=== PATIENT | female | born 1960 ===

== ENCOUNTER 2020-08-06 11:26 | Outpatient (REF) | payer OTHER, SELFPAY ==
--- NOTE | ~2020-08-06 | MM_ITS ---
EXAMINATION: MM SCREENING DIGITAL BREAST TOMOSYNTHESIS, BILATERAL CLINICAL INFORMATION: Screening. Asymptomatic. The lifetime risk of breast cancer based on the Tyrer-Cuzick Model is 4%. COMPARISON: Mammography: 02/03/2016, 08/19/2014 TECHNIQUE: Digital breast tomosynthesis is performed in both the craniocaudal and mediolateral oblique views along with computer-aided detection (CAD). Synthesized 2D images are generated from the tomosynthesis. FINDINGS: There are scattered areas of fibroglandular density (ACR BI-RADS breast composition Category b). Parenchymal pattern is similar to prior studies and there is no developing density or significant mass or architectural abnormality. There are increased bilateral scattered benign round and vascular calcifications. The axilla and skin contours are unremarkable. MM/MM tomosynthesis screening BI IMPRESSION: No significant changes from prior exams. ASSESSMENT: BI-RADS 2: Benign RECOMMENDATION: Routine annual mammography screening. This patient's information was entered into a reminder system with a target due date for their next mammogram.
== END 2020-08-06 11:27 | disposition home or self-care (01) ==
LOC: HO.MAMMO 11:26
PROVIDERS: PCP Internal Medicine; Visit Provider Internal Medicine
DX: Z12.31 Encounter for screening mammogram for malignant neoplasm of breast (principal)
CPT/HCPCS: 77063; 77067

== ENCOUNTER → 2020-08-27 10:44 | Outpatient (BNVA) | payer OTHER, SELFPAY | PROVIDERS: Visit Provider Advanced Practice Midwife ==

== ENCOUNTER 2020-11-29 08:35 | Outpatient (REF) | payer OTHER, SELFPAY ==
[2020-11-29 09:20] LABS: MANUAL DIFF FLAG NO
[2020-11-29 09:24] LABS: Basophils Percent Auto 0.8 % (0-2); Eosinophils Absolute Auto 0.2 X10*3/uL (0.0-0.4); Eosinophils Percent Auto 4.8 % (0-4); Hematocrit 42.7 % (37-47); Imm Gran Abs Auto 0.02 X10*3/uL (0.00-0.03); Imm Gran Pct Auto 0.4 % (0.0-0.4); Lymphocytes Absolute Auto 1.7 X10*3/uL (1.2-4.9); Lymphocytes Percent Auto 35.7 % (20-40); Mean Corpuscular HGB Conc 32.8 g/dl (31.0-35.0); Mean Corpuscular Hemoglobin 29.5 pg (27.0-33.0); Mean Corpuscular Volume 90.1 fL (80-98); Mean Platelet Volume 10.2 fL (9.4-12.3); Monocytes Absolute Auto 0.5 X10*3/uL (0.1-1.2); Monocytes Percent Auto 9.9 % (2-11); Neutrophils Absolute Auto 2.3 X10*3/uL (2.0-8.3); Neutrophils Percent Auto 48.4 % (45-73); Platelet Count 183 X10*3/uL (160-400); Red Blood Count 4.74 X10*6/uL (4.20-5.50); Red Cell Distribution Width 12.2 % (11.0-16.0); White Blood Count 4.8 X10*3/uL (4.8-10.8)
[2020-11-29 09:53] LABS: Alanine Aminotransferase 18 U/L (0-31); Albumin Level 3.9 g/dL (3.5-5.0); Alkaline Phosphatase 102 U/L (39-117); Anion Gap 10 (12-20); Aspartate Amino Transferase 18 U/L (5-31); Bilirubin Total 0.7 mg/dL (0.0-1.0); Blood Urea Nitrogen 16 mg/dL (9-16); Calcium 9.1 mg/dL (8.4-10.2); Carbon Dioxide 28 mmol/L (22-29); Chloride 108 mmol/L (96-108); Cholesterol 213 mg/dL; Estimated Glomerular Filt Rate > 60; Glucose Fasting 151 mg/dL (60-99); HDL Cholesterol 54 mg/dL; LDL Cholesterol Calculated 139 mg/dl; Potassium 4.9 mmol/L (3.3-5.1); Sodium 141 mmol/L (135-145); Total Protein 6.5 g/dL (6.5-8.0); Triglycerides 102 mg/dL
[2020-11-29 10:04] LABS: Creatinine Urine 101.25 mg/dL; Microalbum/Creatinine Ratio Ur 6.9 ug/mg cr
== END 2020-11-29 08:36 | disposition home or self-care (01) ==
LOC: HO.LAB 08:35
PROVIDERS: PCP Internal Medicine; Visit Provider Internal Medicine
DX: E11.29 Type 2 diabetes mellitus with other diabetic kidney complication (principal); R80.9 Proteinuria, unspecified; E78.5 Hyperlipidemia, unspecified
CPT/HCPCS: 36415; 80053; 80061; 82043; 85025

== ENCOUNTER 2021-09-02 10:11 | Outpatient (REF) | payer OTHER, SELFPAY ==
[2021-09-06 22:02] LABS: HPV mRNA E6/E7 rflx Not Detected (Not Detected)
== END 2021-09-02 10:12 | disposition home or self-care (01) ==
LOC: HO.LAB 10:11
PROVIDERS: Visit Provider Advanced Practice Midwife
DX: Z01.419 Encounter for gynecological examination (general) (routine) without abnormal findings (principal); Z11.51 Encounter for screening for human papillomavirus (HPV)
CPT/HCPCS: 87624; 88142

== ENCOUNTER 2021-09-03 10:10 | Outpatient (REF) | payer OTHER, SELFPAY ==
[2021-09-03 11:42] LABS: Alanine Aminotransferase 33 U/L (0-31); Albumin Level 3.9 g/dL (3.5-5.0); Alkaline Phosphatase 111 U/L (39-117); Anion Gap 11 (12-20); Aspartate Amino Transferase 22 U/L (5-31); Bilirubin Total 0.8 mg/dL (0.0-1.0); Blood Urea Nitrogen 17 mg/dL (9-16); Calcium 9.5 mg/dL (8.4-10.2); Carbon Dioxide 27 mmol/L (22-29); Chloride 104 mmol/L (96-108); Cholesterol 220 mg/dL; Estimated Glomerular Filt Rate > 60; Glucose Fasting 195 mg/dL (60-99); HDL Cholesterol 51 mg/dL; LDL Cholesterol Calculated 150 mg/dl; Potassium 4.4 mmol/L (3.3-5.1); Sodium 138 mmol/L (135-145); Total Protein 6.9 g/dL (6.5-8.0); Triglycerides 95 mg/dL
[2021-09-03 11:42] LABS: Creatinine Urine 97.05 mg/dL; Microalbum/Creatinine Ratio Ur 10.3 ug/mg cr
== END 2021-09-03 10:11 | disposition home or self-care (01) ==
LOC: HO.LAB 10:10
PROVIDERS: PCP Internal Medicine; Visit Provider Internal Medicine
DX: E11.29 Type 2 diabetes mellitus with other diabetic kidney complication (principal); R80.9 Proteinuria, unspecified; E78.5 Hyperlipidemia, unspecified
CPT/HCPCS: 36415; 80053; 80061; 82043

== ENCOUNTER 2021-09-23 12:32 | Outpatient (REF) | payer OTHER, SELFPAY ==
--- NOTE | ~2021-09-23 | MM_ITS ---
EXAMINATION: MM SCREENING DIGITAL BREAST TOMOSYNTHESIS, BILATERAL CLINICAL INFORMATION: Screening. Asymptomatic. The lifetime risk of breast cancer based on the Tyrer-Cuzick Model is 5%. COMPARISON: Mammography: 08/06/2020, 02/03/2016, 08/19/2014 TECHNIQUE: Digital breast tomosynthesis is performed in both the craniocaudal and mediolateral oblique views along with computer-aided detection (CAD). Synthesized 2D images are generated from the tomosynthesis. FINDINGS: There are scattered areas of fibroglandular density (ACR BI-RADS breast composition Category b). There are no significant masses, abnormal calcifications, or other abnormalities. Parenchymal pattern is similar to prior studies. The axilla and skin contours are unremarkable. MM/MM tomosynthesis screening BI IMPRESSION: No mammographic evidence of malignancy. ASSESSMENT: BI-RADS 1: Negative RECOMMENDATION: Routine annual mammography screening. This patient's information was entered into a reminder system with a target due date for their next mammogram.
== END 2021-09-23 12:33 | disposition home or self-care (01) ==
LOC: HO.MAMMO 12:32
PROVIDERS: PCP Internal Medicine; Visit Provider Internal Medicine
DX: Z12.31 Encounter for screening mammogram for malignant neoplasm of breast (principal)
CPT/HCPCS: 77063; 77067

== ENCOUNTER → 2021-11-01 11:37 | Outpatient (BNVA) | payer OTHER, SELFPAY | PROVIDERS: PCP Internal Medicine; Referring Provider Internal Medicine; Visit Provider Nurse Practitioner Family | DX: Z12.11 Encounter for screening for malignant neoplasm of colon (principal) ==

== ENCOUNTER 2022-01-21 08:31 | Outpatient (REF) | payer OTHER, SELFPAY ==
[2022-01-21 09:50] LABS: Alanine Aminotransferase 22 U/L (0-31); Albumin Level 3.8 g/dL (3.5-5.0); Alkaline Phosphatase 125 U/L (39-117); Anion Gap 11 (12-20); Aspartate Amino Transferase 20 U/L (5-31); Bilirubin Total 0.4 mg/dL (0.0-1.0); Blood Urea Nitrogen 9 mg/dL (9-16); Calcium 8.9 mg/dL (8.4-10.2); Carbon Dioxide 27 mmol/L (22-29); Chloride 103 mmol/L (96-108); Cholesterol 217 mg/dL; Estimated Glomerular Filt Rate > 60; Glucose Fasting 180 mg/dL (60-99); HDL Cholesterol 51 mg/dL; LDL Cholesterol Calculated 146 mg/dl; Potassium 4.2 mmol/L (3.3-5.1); Sodium 137 mmol/L (135-145); Total Protein 6.7 g/dL (6.5-8.0); Triglycerides 103 mg/dL
== END 2022-01-21 08:32 | disposition home or self-care (01) ==
LOC: HO.LAB 08:31
PROVIDERS: PCP Internal Medicine; Visit Provider Internal Medicine
DX: E11.29 Type 2 diabetes mellitus with other diabetic kidney complication (principal); R80.9 Proteinuria, unspecified; E78.5 Hyperlipidemia, unspecified
CPT/HCPCS: 36415; 80053; 80061

== ENCOUNTER 2022-03-03 11:50 | Day surgery (SDC) | payer OTHER, SELFPAY ==
[2022-03-01 08:18] VITALS: BMI 30.3
--- NOTE | 2022-03-02 09:51 | HO.ANESPROP2 ---
Documented by User: Rose Meza NP 03/02/22 09:51 HPI - Anesthesia Eval Consult details Narrative: 61yo F for Colonoscopy PMFSH Active Problems Active Problems: All Active Problems (Updated 02/06/22 @ 13:00 by Libia Ford MD) Constipation by delayed colonic transit (Acute) Essential hypertension (Acute) Class 1 obesity with body mass index (BMI) of 30.0 to 30.9 in adult (Acute) Screen for colon cancer (Acute) Dyslipidemia (Acute) 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 (Acute) Past Medical History Medical History (Updated 02/06/22 @ 13:00 by Libia Ford MD) Class 1 obesity with body mass index (BMI) of 30.0 to 30.9 in adult 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 Dyslipidemia Screen for colon cancer Family History Family History Father Diabetes Mother Hypertension Fibromyalgia Maternal Grandmother No problems noted. Maternal Grandfather No problems noted. Paternal Grandmother Diabetes Paternal Grandfather Diabetes Son No problems noted. Son No problems noted. Daughter No problems noted. Daughter No problems noted. Daughter No problems noted. Surgical History Surgical History History of cholecystectomy History of hemicolectomy History of tubal ligation Social History Social History Housing: Apartment Alcohol intake: current Alcohol intake frequency: does not drink Patient Tobacco Use Status: Former Tobacco user Tobacco use type: Cigarette e-Cigarette/Vaping Use: Former Use Second Hand Smoke Exposure: No Are you DNR?: No Advance Directives: No Advance Directives Information Provided: Yes Recently lost weight without trying: No Nutrition Risks: No Nutritional Risk Patient : No service: No Current occupational status: unemployed and disabled Cognitive needs: No Hearing needs: No Meds Allergies Allergy/AdvReac Type Severity Reaction Status Date / Time No Known Allergies Allergy Unknown Verified 03/03/22 12:09 [No Known Allergies*] Home Medications Medication Instructions Recorded Confirmed Last Taken Type Glucophage XR 03/03/22 Unknown History Exam Exam Date and Time: March 02, 2022 0951 Height,Weight and Vital Signs: Height 5 ft 2 in Weight 75.296 kg Pertinent Lab Results Pertinent Lab Results: Laboratory Tests 11/29/20 01/21/22 08:55 08:41 WBC 4.8 Hgb 14.0 Hct 42.7 Plt Count 183 Sodium 137 Potassium 4.2 Chloride 103 Carbon Dioxide 27 BUN 9 Creatinine 0.69 Assessment and Plan Assessment Anesthesia Assessment: Chart Reviewed Documented by User: Aydee Freedman MD 03/03/22 12:28 [facility] Past Medical History Medical History (Updated 02/06/22 @ 13:00 by Libia Ford MD) Class 1 obesity with body mass index (BMI) of 30.0 to 30.9 in adult 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 Dyslipidemia Screen for colon cancer Family History Family History Father Diabetes Mother Hypertension Fibromyalgia Maternal Grandmother No problems noted. Maternal Grandfather No problems noted. Paternal Grandmother Diabetes Paternal Grandfather Diabetes Son No problems noted. Son No problems noted. Daughter No problems noted. Daughter No problems noted. Daughter No problems noted. Family history of problems with anesthesia: No Surgical History Surgical History History of cholecystectomy History of hemicolectomy History of tubal ligation History of Problems with Anesthesia: No Social History Social History Housing: Apartment Alcohol intake: current Alcohol intake frequency: does not drink Patient Tobacco Use Status: Former Tobacco user Tobacco use type: Cigarette e-Cigarette/Vaping Use: Former Use Second Hand Smoke Exposure: No Are you DNR?: No Advance Directives: No Advance Directives Information Provided: Yes Recently lost weight without trying: No Nutrition Risks: No Nutritional Risk Patient : No service: No Current occupational status: unemployed and disabled Cognitive needs: No Hearing needs: No Meds Allergies Allergy/AdvReac Type Severity Reaction Status Date / Time No Known Allergies Allergy Unknown Verified 03/03/22 12:09 [No Known Allergies*] Home Medications Medication Instructions Recorded Confirmed Last Taken Type Glucophage XR 03/03/22 Unknown History Exam Airway Mallampati Class: II TM Dist: >3cm Neck ROM: Full Heart: rrr Lungs: cta Assessment and Plan Assessment Anesthesia Assessment: Anesthesia Plan Discussed Final Anesthetic Review Family History of Problems with Anesthesia: No History of Problems with Anesthesia: No NPO: Yes ASA Class: II Final Preanesthetic Review: No Changes in Pt Med Stat, Meds/Allgs Chart Reviewed and Consent Obtained/Reviewed Patient Risk: Intermediate Procedure Risk: Intermediate Anesthetic Plan Anesthetic Plan: MAC: Disposition: Standard PACU
[2022-03-03 11:59] VITALS: BP 159/66; PULSE 112; RESP 19; TEMP 36.3; O2SAT 96
[2022-03-03 12:00] LABS: Glucose, Whole Blood 173 mg/dL (60-115)
[2022-03-03] MEDS: Lactated Ringers 1,000 ML 100 ML IVCONT (12:18)
--- NOTE | 2022-03-03 13:11 | MHC.SHP ---
Pre-Procedural Eval Section A Date of Service: 03/03/22 The patient is an INPATIENT: No The History & Physical has been completed within 30 days and I have reviewed it.: No Section B Chief Complaint: screening Details of Present Illness: Colon cancer screening, history of colon polyps Relevant Family History (Specify if Yes): No Relevant Social History: Tobacco Use (Former smoker) Present Medications: see Short Stay Collaborative assessment Medical History: Significant History (Class 1 obesity with body mass index (BMI) of 30.0 to 30.9 in adult 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 Dyslipidemia Screen for colon cancer) History of Previous Operations: Relevant previous surgery/procedure and date(s) (History of cholecystectomy History of hemicolectomy History of tubal ligation) Allergies: Allergies Allergy/AdvReac Type Severity Reaction Status Date / Time No Known Allergies Allergy Unknown Verified 03/03/22 12:09 [No Known Allergies*] Review of Systems Sugical H&P ROS: Negative: Constitution, Cardiovascular, Respiratory and Gastrointestinal Exam Surgical H&P Exam: Normal: Heart, Normal: Lungs, Normal: Extremities and Normal: Abdomen Plan Diagnosis/Plan: Unchanged I have reviewed the history and physical and performed a pertinent physical examination on my patient. No changes have occurred unless specified.
[2022-03-03 13:52] VITALS: BP 132/102; PULSE 77; RESP 16; TEMP 36.2; O2SAT 97
--- NOTE | 2022-03-03 13:52 | PM.OP ---
Brief Operative Note Date of Service: 03/03/22 Pre-op diagnosis: Colon cancer screen, history of colon polyps Post-op diagnosis: other (Colon polyps, diverticulosis, hemorrhoids) Procedure: COLONOSCOPY TILL CECUM WITH BIOPSIES Consent: Indications for the procedure and potential complications of bleeding, perforation, reaction to medications and missed diagnosis were discussed with the patient and informed consent was obtained. Instrument: Olympus PCF H 190 L variable stiffness pediatric colonoscope Monitoring: Vital signs and clinical assessment, intermittent blood pressure monitoring, continuous EKG monitoring, Pulse oximetry and Carbon Dioxide monitoring were done throughout the procedure. Colon withdrawl time was 18 minutes. Procedure: The patient was placed in the left lateral decubitis position and pre-procedure medications were administered. After a digital rectal examination of the ano-rectum, the video colonoscope was inserted into the rectum and advanced through the colon to the cecum. The colonoscope was slowly withdrawn in a retrograde panoramic fashion and the colon mucosa was carefully examined including a retroflexed view of the rectum. Findings and interventions are described below. Procedure Difficulty: Without difficulty Findings: Terminal Ileum: Not evaluated Cecum: Normal Ascending Colon: a 3-4 mm sessile polyp removed with a cold bx Scattered moderate diverticulosis throughout the colon Transverse Colon: Scattered moderate diverticulosis throughout the colon Descending Colon: Two 4-5 mm polyps versus folds in a diverticulum - biopsied. Scattered moderate diverticulosis throughout the colon Sigmoid Colon: Moderate diverticulosis Rectum: Normal Ano-rectum: Moderate internal hemorrhoids Colon preparation: Good Impression and Post Procedure Diagnosis: Colonoscopy Findings: Three small polyps removed Moderate diverticulosis seen in the entire colon Moderate hemorrhoids on retroflexed exam. Plan: Await pathology results Patient has an appointment on 03/31/22 in the GI Clinic with Ysabel Lieberman FNP-BC. Repeat Colonoscopy interval based on path results - in 3-5 years if polyps are adenomatous and 10 years if polyps are hyperplastic. Above findings were reviewed with the patient and colon polyps and diverticulosis handouts were given in the discharge area Surgeon: Nunu Gonzales MD Anesthesia: MAC (Dr Mejia) Was an Video Presentation Operator used for this Procedure?: Yes Video Presentation Operator: Juan Daniel Rodrigez Estimated blood loss (mL): 0 Pathology: other (A- ASCENDING COLON POLYP B- SIGMOID COLON POLYPS) Condition: stable Disposition: PACU
[2022-03-03 14:07] VITALS: BP 131/79; PULSE 87; RESP 16; TEMP 36.2; O2SAT 97
--- NOTE | 2022-03-05 15:29 | W.PM.OPN ---
Operative Note Operative Note Date of Service: 03/03/22 Narrative: Pre-op diagnosis: Colon cancer screen, history of colon polyps Post-op diagnosis:?other (Colon polyps, diverticulosis, hemorrhoids) Procedure: COLONOSCOPY TILL CECUM WITH BIOPSIES Consent: Indications for the procedure and potential complications of bleeding, perforation, reaction to medications and missed diagnosis were discussed with the patient and informed consent was obtained. Instrument: Olympus PCF H 190 L variable stiffness pediatric colonoscope Monitoring: Vital signs and clinical assessment, intermittent blood pressure monitoring, continuous EKG monitoring, Pulse oximetry and Carbon Dioxide monitoring were done throughout the procedure. Colon withdrawl time was 18 minutes. Procedure: The patient was placed in the left lateral decubitis position and pre-procedure medications were administered. After a digital rectal examination of the ano-rectum, the video colonoscope was inserted into the rectum and advanced through the colon to the cecum. The colonoscope was slowly withdrawn in a retrograde panoramic fashion and the colon mucosa was carefully examined including a retroflexed view of the rectum. Findings and interventions are described below. Procedure Difficulty: Without difficulty Findings: Terminal Ileum: Not evaluated Cecum:? Normal Ascending Colon:? a 3-4 mm sessile polyp removed with a cold bx Scattered moderate diverticulosis throughout the colon Transverse Colon:? Scattered moderate diverticulosis throughout the colon Descending Colon:? Two 4-5 mm polyps versus folds in a diverticulum - biopsied. Scattered moderate diverticulosis throughout the colon Sigmoid Colon:? Moderate diverticulosis Rectum:? Normal Ano-rectum:? Moderate internal hemorrhoids Colon preparation:? Good? Impression and Post Procedure Diagnosis: Colonoscopy Findings: Three small polyps removed Moderate diverticulosis seen in the entire colon Moderate hemorrhoids on retroflexed exam. Plan: Await pathology results Patient has an appointment on 03/31/22 in the GI Clinic with Ysabel Lieberman FNP-BC. Repeat Colonoscopy interval based on path results - in 3-5 years if polyps are adenomatous and 10 years if polyps are hyperplastic. Above findings were reviewed with the patient and colon polyps and diverticulosis handouts were given in the discharge area Surgeon: Nunu Gonzales MD Anesthesia:?MAC (Dr Mejia) Was an National Account Executive used for this Procedure?:?Yes National Account Executive:?Juan Daniel Rodrigez Estimated blood loss (mL):?0 Pathology:?other (A- ASCENDING COLON POLYP? B- SIGMOID COLON POLYPS) Condition:?stable Disposition:?PACU
== END 2022-03-03 14:45 | disposition home or self-care (01) ==
PROVIDERS: PCP Internal Medicine; Visit Provider Internal Medicine Gastroenterology
PROC: 0DJD8ZZ Inspection of Lower Intestinal Tract, Via Natural or Artificial Opening Endoscopic (ICD-10-PCS; CPT 45378; principal; 2022-03-03 12:30)
DX: Z12.11 Encounter for screening for malignant neoplasm of colon (principal); Z86.010 Personal history of colon polyps; D12.2 Benign neoplasm of ascending colon; K63.5 Polyp of colon; K57.30 Diverticulosis of large intestine without perforation or abscess without bleeding; K64.8 Other hemorrhoids; K59.01 Slow transit constipation; E66.8 Other obesity; Z68.30 Body mass index [BMI] 30.0-30.9, adult; E78.5 Hyperlipidemia, unspecified; E11.9 Type 2 diabetes mellitus without complications; Z90.49 Acquired absence of other specified parts of digestive tract; Z87.891 Personal history of nicotine dependence
CPT/HCPCS: 45380; 82947; 88305

== ENCOUNTER 2022-10-17 06:40 | Emergency (ER) | payer OTHER, SELFPAY ==
[2022-10-17 06:42] VITALS: BP 153/103; PULSE 91; RESP 18; TEMP 36; O2SAT 94; BMI 27.9
--- NOTE | 2022-10-17 06:59 | ED_ITS ---
HPI - General Adult General Chief complaint: Skin/Abscess/Foreign Body Stated complaint: ?Diverticulitis Time Seen by Provider: 10/17/22 06:59 Source: patient Mode of arrival: ambulatory Limitations: no limitations History of Present Illness HPI narrative: 2 weeks ago she had pain, she took tylenol for 2 weeks, the pain went away but now she has a rash on the abdomen. Not itchy. She has the rash before but kaci stearns told what it is. The rash started 1.5 weeks ago, she comes in now because the rash has not gone away. Onset (ago): week(s) Location: abdomen Severity: mild Related Data Home Medications Medication Instructions Recorded Confirmed Glucophage XR 03/03/22 Previous Rx's Medication Instructions Recorded metformin 500 mg tablet 500 mg PO BID 90 days #180 tabs 02/06/22 polyethylene glycol 3350 17 17 g PO DAILY #510 grams 03/31/22 gram/dose oral powder (Miralax) Allergies Allergy/AdvReac Type Severity Reaction Status Date / Time No Known Allergies Allergy Unknown Verified 03/31/22 09:37 [No Known Allergies*] Review of Systems 2 Review of Systems: Yes all other systems are reviewed and are negative Gastrointestinal: Gastrointestinal: Reports abdominal pain PMFSH Past Medical History Medical History Class 1 obesity with body mass index (BMI) of 30.0 to 30.9 in adult 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 Diverticulosis Dyslipidemia Screen for colon cancer Tubular adenoma Surgical History History of cholecystectomy History of hemicolectomy History of tubal ligation Hx of colonoscopy Family History Family History Father Diabetes Mother Hypertension Fibromyalgia Maternal Grandmother No problems noted. Maternal Grandfather No problems noted. Paternal Grandmother Diabetes Paternal Grandfather Diabetes Son No problems noted. Son No problems noted. Daughter No problems noted. Daughter No problems noted. Daughter No problems noted. Social History Social History Housing: Apartment Alcohol intake: never Patient Tobacco Use Status: Former Tobacco user Tobacco use type: Cigarette e-Cigarette/Vaping Use: Former Use Second Hand Smoke Exposure: No service: No Current occupational status: unemployed and disabled Cognitive needs: No Hearing needs: No Physical Exam ED Vital Signs: Vital Signs - 24 hr 10/17/22 06:42 Temperature 96.8 F Pulse Rate 91 Respiratory Rate 18 Blood Pressure 153/103 H Pulse Oximetry 94 Oxygen Delivery Method Room Air BMI result Body Mass Index 27.9 Const General: healthy appearing Nutritional Appearance: average body habitus Orientation/consciousness: oriented to person and patient oriented x3 Limitations: no limitations HENMT Head: Yes normal to inspection Ears: external ears normal General nose exam: Normal external nose present Mouth: Normal oral and palatal mucosa present and oropharynx normal Throat: Yes posterior oropharynx normal Eyes General: appearance normal, both eyes and all related structures Neck Neck: Yes normal visual inspection Chest Chest palpation & inspection: normal inspection of the chest Resp Auscultation: clear to auscultation bilaterally Cardio Jugular venous distension: no JVD Rate: regular rate Rhythm: regular rhythm Heart sounds: S1 normal heart sound present and S2 normal heart sound present GI Inspection: Yes normal to inspection Palpation (GI): Soft to palpation, nontender and No hepatosplenomegaly present Auscultation: normal bowel sounds General: Yes no CVA tenderness Back/Spine/Pelvis Back: no CVA tenderness Skin Other: purpura down legs and low abdomen Neuro General: oriented to person and patient oriented x3 Cranial nerves: Yes CN's II-XII intact bilaterally Motor exam (neuro): 5/5 motor strength present throughout Extrem General: Yes normal to inspection Psych Appearance: grossly normal Course Reevaluation(s) Reevaluation #1: Patient with purpura that looks like Henoch Schlein. no fever no evidence of other bleeding. Will dc home with follow up Time: 11:53 Medical Decision Making Differential Diagnosis Differential Diagnoses: The differential diagnosis associated with the presentation includes (bleeding disorder, Henoch Schlein purpura, thrombocytopenia) Admission/Observation Consideration of admission/observation: Escalation of care including admission/observation considered (in this patient who presents with purpura, admission was considered) Lab Data MDM Lab Attestation statement: I reviewed the patient's lab results. 10/17/22 07:18 10/17/22 07:18 Labs: Lab Results 10/17/22 10/17/22 10/17/22 Range/Units 07:18 07:18 07:18 WBC (4.8-10.8) X10*3/uL RBC (4.20-5.50) X10*6/uL Hgb (12.0-16.0) g/dl Hct (37.0-47.0) % MCV (80.0-98.0) fL MCH (27.0-33.0) pg MCHC (31.0-35.0) g/dl RDW (11.0-16.0) % Plt Count (160-400) X10*3/uL MPV (9.4-12.3) fL Immature Gran % (Auto) (0.0-0.4) % Neut % (Auto) (45-73) % Lymph % (Auto) (20-40) % Wagoner % (Auto) (2-11) % Eos % (Auto) (0-4) % Baso % (Auto) (0-2) % Lymph # (Auto) (1.2-4.9) X10*3/uL Wagoner # (Auto) (0.1-1.2) X10*3/uL Eos # (Auto) (0.0-0.4) X10*3/uL Baso # (Auto) (0.0-0.2) X10*3/uL Abs Immat Gran (auto) (0.00-0.03) X10*3/uL Absolute Neuts (auto) (2.0-8.3) x10*3/uL Absolute Nucleated RBC (0.0-0.012) X10*3/uL Nucleated RBC % (auto) (0.0-0.2) /100WBC ESR 7 (0-20) MM/HR APTT 29.3 (26.0-36.4) SEC Sodium 142 (135-145) mmol/L Potassium 4.0 (3.3-5.1) mmol/L Chloride 107 (96-108) mmol/L Carbon Dioxide 28 (22-29) mmol/L Anion Gap 11 L (12-20) BUN 10 (9-16) mg/dL Creatinine 0.72 (0.5-1.4) mg/dL Estim Creat Clear Calc 86.3 Estimated GFR > 60 Random Glucose 180 H (60-115) mg/dL Calcium 9.1 (8.4-10.2) mg/dL Total Bilirubin 0.7 (0.0-1.0) mg/dL AST 21 (5-31) U/L ALT 25 (0-31) U/L Alkaline Phosphatase 122 H (39-117) U/L Total Protein 6.4 L (6.5-8.0) g/dL Albumin 3.7 (3.5-5.0) g/dL 10/17/22 Range/Units 07:18 WBC 4.2 L (4.8-10.8) X10*3/uL RBC 4.52 (4.20-5.50) X10*6/uL Hgb 13.4 (12.0-16.0) g/dl Hct 40.1 (37.0-47.0) % MCV 88.7 (80.0-98.0) fL MCH 29.6 (27.0-33.0) pg MCHC 33.4 (31.0-35.0) g/dl RDW 11.9 (11.0-16.0) % Plt Count 183 (160-400) X10*3/uL MPV 9.6 (9.4-12.3) fL Immature Gran % (Auto) 0.5 H (0.0-0.4) % Neut % (Auto) 52.6 (45-73) % Lymph % (Auto) 31.4 (20-40) % Wagoner % (Auto) 9.3 (2-11) % Eos % (Auto) 5.5 H (0-4) % Baso % (Auto) 0.7 (0-2) % Lymph # (Auto) 1.3 (1.2-4.9) X10*3/uL Wagoner # (Auto) 0.4 (0.1-1.2) X10*3/uL Eos # (Auto) 0.2 (0.0-0.4) X10*3/uL Baso # (Auto) 0.0 (0.0-0.2) X10*3/uL Abs Immat Gran (auto) 0.02 (0.00-0.03) X10*3/uL Absolute Neuts (auto) 2.2 (2.0-8.3) x10*3/uL Absolute Nucleated RBC 0.000 (0.0-0.012) X10*3/uL Nucleated RBC % (auto) 0.0 (0.0-0.2) /100WBC ESR (0-20) MM/HR APTT (26.0-36.4) SEC Sodium (135-145) mmol/L Potassium (3.3-5.1) mmol/L Chloride (96-108) mmol/L Carbon Dioxide (22-29) mmol/L Anion Gap (12-20) BUN (9-16) mg/dL Creatinine (0.5-1.4) mg/dL Estim Creat Clear Calc Estimated GFR Random Glucose (60-115) mg/dL Calcium (8.4-10.2) mg/dL Total Bilirubin (0.0-1.0) mg/dL AST (5-31) U/L ALT (0-31) U/L Alkaline Phosphatase (39-117) U/L Total Protein (6.5-8.0) g/dL Albumin (3.5-5.0) g/dL Discharge Plan Discharge Clinical Impression: Henoch-Schonlein purpura Patient Disposition: Home, Self-Care Instructions: Henoch-Schonlein Purpura (ED), Purpura (ED) Prescriptions: No Action Glucophage XR metformin 500 mg tablet 500 mg PO BID 90 Days Qty: 180 3RF polyethylene glycol 3350 [Miralax] 17 gram/dose powder 17 g PO DAILY Qty: 510 2RF Referrals: Libia Jordan MD [Primary Care Provider] - 5 days
[2022-10-17 07:23] LABS: MANUAL DIFF FLAG NO
[2022-10-17 07:25] LABS: Basophils Percent Auto 0.7 % (0-2); Eosinophils Absolute Auto 0.2 X10*3/uL (0.0-0.4); Eosinophils Percent Auto 5.5 % (0-4); Hematocrit 40.1 % (37.0-47.0); Hemoglobin 13.4 g/dl (12.0-16.0); Imm Gran Abs Auto 0.02 X10*3/uL (0.00-0.03); Imm Gran Pct Auto 0.5 % (0.0-0.4); Lymphocytes Absolute Auto 1.3 X10*3/uL (1.2-4.9); Lymphocytes Percent Auto 31.4 % (20-40); Mean Corpuscular HGB Conc 33.4 g/dl (31.0-35.0); Mean Corpuscular Hemoglobin 29.6 pg (27.0-33.0); Mean Corpuscular Volume 88.7 fL (80.0-98.0); Mean Platelet Volume 9.6 fL (9.4-12.3); Monocytes Absolute Auto 0.4 X10*3/uL (0.1-1.2); Monocytes Percent Auto 9.3 % (2-11); Neutrophils Absolute Auto 2.2 x10*3/uL (2.0-8.3); Neutrophils Percent Auto 52.6 % (45-73); Platelet Count 183 X10*3/uL (160-400); Red Blood Count 4.52 X10*6/uL (4.20-5.50); Red Cell Distribution Width 11.9 % (11.0-16.0); White Blood Count 4.2 X10*3/uL (4.8-10.8)
[2022-10-17 07:33] LABS: Partial Thromboplastin Time 29.3 SEC (26.0-36.4)
[2022-10-17 08:09] LABS: Erythrocyte Sedimentation Rate 7 MM/HR (0-20)
[2022-10-17 11:46] LABS: Alanine Aminotransferase 25 U/L (0-31); Albumin Level 3.7 g/dL (3.5-5.0); Alkaline Phosphatase 122 U/L (39-117); Anion Gap 11 (12-20); Aspartate Amino Transferase 21 U/L (5-31); Bilirubin Total 0.7 mg/dL (0.0-1.0); Blood Urea Nitrogen 10 mg/dL (9-16); Calcium 9.1 mg/dL (8.4-10.2); Carbon Dioxide 28 mmol/L (22-29); Chloride 107 mmol/L (96-108); Creatinine Clr Calc Pharmacy 86.3; Estimated Glomerular Filt Rate > 60; Glucose Random 180 mg/dL (60-115); Sodium 142 mmol/L (135-145); Total Protein 6.4 g/dL (6.5-8.0)
[2022-10-17 11:57] VITALS: BP 164/80; PULSE 96; RESP 16; O2SAT 96
[2022-10-19 15:28] LABS: CRP High Sensitivity 2.7 mg/L
== END 2022-10-17 12:10 | disposition home or self-care (01) ==
PROVIDERS: Emergency Provider Emergency Medicine; PCP Internal Medicine
DX: D69.0 Allergic purpura (principal); E11.9 Type 2 diabetes mellitus without complications; E78.5 Hyperlipidemia, unspecified; Z87.891 Personal history of nicotine dependence; Z79.84 Long term (current) use of oral hypoglycemic drugs; Z79.899 Other long term (current) drug therapy
CPT/HCPCS: 36415; 80053; 85025; 85652; 85730; 86141; 99283; 99284

== ENCOUNTER 2022-11-07 07:46 | Outpatient (REF) | payer OTHER, SELFPAY ==
[2022-11-07 09:23] LABS: Alanine Aminotransferase 34 U/L (0-31); Albumin Level 3.9 g/dL (3.5-5.0); Alkaline Phosphatase 94 U/L (39-117); Anion Gap 11 (12-20); Aspartate Amino Transferase 31 U/L (5-31); Bilirubin Total 1.2 mg/dL (0.0-1.0); Blood Urea Nitrogen 12 mg/dL (9-16); Calcium 9.7 mg/dL (8.4-10.2); Carbon Dioxide 28 mmol/L (22-29); Chloride 107 mmol/L (96-108); Cholesterol 218 mg/dL; Estimated Glomerular Filt Rate > 60; Glucose Fasting 153 mg/dL (60-99); HDL Cholesterol 48 mg/dL; LDL Cholesterol Calculated 146 mg/dl; Potassium 4.8 mmol/L (3.3-5.1); Sodium 141 mmol/L (135-145); Total Protein 6.8 g/dL (6.5-8.0); Triglycerides 122 mg/dL
[2022-11-07 09:40] LABS: Creatinine Urine 214.92 mg/dL; Microalbum/Creatinine Ratio Ur 31.6 ug/mg cr
== END 2022-11-07 07:47 | disposition home or self-care (01) ==
LOC: HO.LAB 07:46
PROVIDERS: PCP Internal Medicine; Visit Provider Internal Medicine
DX: E78.5 Hyperlipidemia, unspecified (principal); E11.29 Type 2 diabetes mellitus with other diabetic kidney complication; E11.9 Type 2 diabetes mellitus without complications; R80.9 Proteinuria, unspecified
CPT/HCPCS: 36415; 80053; 80061; 82043

== ENCOUNTER 2022-12-04 08:21 | Outpatient (REF) | payer OTHER, SELFPAY ==
--- NOTE | ~2022-12-04 | XR_ITS ---
EXAMINATION: XR THORACOLUMBAR SPINE CLINICAL INFORMATION: Scoliosis COMPARISON: 07/17/2019 TECHNIQUE: 4 views of the thoracic spine FINDINGS: Bones are diffusely demineralized. Moderate multilevel spondylosis in the mid to lower thoracic spine with prominent anterior osteophytes. No thoracic vertebral body compression fractures identified. Degenerative changes on limited views of the upper lumbar spine. XR/XR thoracic spine 2V IMPRESSION: Multilevel thoracic spondylosis.
== END 2022-12-04 08:22 | disposition home or self-care (01) ==
LOC: HO.XRAY 08:21
PROVIDERS: PCP Internal Medicine; Visit Provider Internal Medicine
DX: M41.9 Scoliosis, unspecified (principal)
CPT/HCPCS: 72070

== ENCOUNTER 2022-12-11 10:15 | Outpatient (REF) | payer OTHER, SELFPAY ==
--- NOTE | ~2022-12-11 | MM_ITS ---
EXAMINATION: MM SCREENING DIGITAL BREAST TOMOSYNTHESIS, BILATERAL CLINICAL INFORMATION: Screening. Asymptomatic. The lifetime risk of breast cancer based on the Tyrer-Cuzick Model is 4.1%. COMPARISON: Mammography: This study is compared with the prior exams dating back to 2016. TECHNIQUE: Digital breast tomosynthesis is performed in both the craniocaudal and mediolateral oblique views along with computer-aided detection (CAD). Synthesized 2D images are generated from the tomosynthesis. FINDINGS: The breasts are heterogeneously dense, which may obscure small masses (ACR BI-RADS breast composition Category c). There are no significant masses, abnormal calcifications, or other abnormalities. MM/MM tomosynthesis screening BI IMPRESSION: No mammographic evidence of malignancy. ASSESSMENT: BI-RADS BI-RADS 1 - Negative RECOMMENDATION: Routine annual mammography screening. 1 year F/U This patient's information was entered into a reminder system with a target due date for their next mammogram.
== END 2022-12-11 10:16 | disposition home or self-care (01) ==
LOC: HO.MAMMO 10:15
PROVIDERS: PCP Internal Medicine; Visit Provider Internal Medicine
DX: Z12.31 Encounter for screening mammogram for malignant neoplasm of breast (principal)
CPT/HCPCS: 77063; 77067

== ENCOUNTER → 2022-12-11 11:15 | Outpatient (BNV) | payer OTHER, SELFPAY | PROVIDERS: PCP Internal Medicine; Visit Provider Radiology Diagnostic Radiology | DX: Z12.31 Encounter for screening mammogram for malignant neoplasm of breast (principal) | CPT/HCPCS: 77063; 77067 ==

== ENCOUNTER 2022-12-21 09:18 | Outpatient (AMB) | payer OTHER, SELFPAY ==
--- NOTE | 2022-12-21 09:20 | MHC.OFFVIS ---
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 Scribed for WENCESLAO Osborn by Megan Duval, medical accounts receivable specialist, on 12/21/2022 at 9:32am EST. Garment Manufacturing Supervisor Required: Yes Garment Manufacturing Supervisor Language: Cooler Man Name: Kerline Information Interpreted: non-clinical & clinical Education Administrative Assistant: Education Administrative Assistant Present (Kerline) Allergies No Known Allergies [No Known Allergies*] Allergy (Unknown, Verified 12/21/22 09:24) HPI HPI Comments History of Present Illness Details She is a postmenopausal woman presenting for annual exam. Doing well with no obgyn hospitalist physician concerns. Patient admits she tries to eat a healthy diet including a multvitamin. She stays active with exercise. Currently not sexually active. Denies vaginal itching and irritation. Admits to vaginal dryness. Denies family hx of breast, colon and ovarian cancer. Last pap smear 09/02/21 Last mammogram 12/11/22 UTD on colonoscopy. [facility] Medical History (Updated 12/21/22 @ 09:38 by Megan Duval) Class 1 obesity with body mass index (BMI) of 30.0 to 30.9 in adult 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 Diverticulosis Dyslipidemia Menopausal vaginal dryness Screen for colon cancer Tubular adenoma Surgical History History of cholecystectomy History of hemicolectomy History of tubal ligation Hx of colonoscopy Family History Father Diabetes Mother Hypertension Fibromyalgia Maternal Grandmother No problems noted. Maternal Grandfather No problems noted. Paternal Grandmother Diabetes Paternal Grandfather Diabetes Son No problems noted. Son No problems noted. Daughter No problems noted. Daughter No problems noted. Daughter No problems noted. Social History Housing: Apartment Alcohol intake: never Patient Tobacco Use Status: Former Tobacco user Tobacco use type: Cigarette e-Cigarette/Vaping Use: Former Use Second Hand Smoke Exposure: No service: No Current occupational status: unemployed and disabled Cognitive needs: No Hearing needs: No Female Reproductive History Menstrual Age of Menarche: 11 control method: permanent sterilization Permanent Sterilization: BTL Total pregnancies: 8 Full term: 5 Number of Living Children: 5 Date of last pap smear: 09/02/21 (neg pap and hpv) Date of Mammogram: 12/11/22 Physical Exam Vital Signs: Last Vital Signs BP 142/88 H 12/21/22 09:22 BMI result Body Mass Index 30.4 Const General: cooperative, healthy appearing, no acute distress, well developed and alert Orientation/consciousness: patient oriented x3 HEENT Head: Yes normal to inspection Eyes General: appearance normal, both eyes and all related structures Neck Neck: Yes normal visual inspection Thyroid: Thyroid normal Chest Chest palpation & inspection: normal inspection of the chest Breast/axilla inspection: normal inspection of the breasts (no puckering, dimpling, peau de orange, retraction, discharge, masses) Breast/axilla palpation: normal palpation of the breasts Resp Effort & Inspection: normal respiratory effort GI Inspection: Yes normal to inspection Palpation (GI): Soft to palpation (to palpation) Rectal Exam - Female: deferred General: Yes bladder normal to inspection External Female Exam: normal external appearance and normal appearance of the urethra Speculum Exam - Vagina: normal appearance of the vagina, normal palpation and vagina atrophic Speculum Exam - Cervix: normal appearance of the cervix and normal palpation Bimanual exam- vagina & uterus: normal palpation and normal palpation Bimanual Exam- Adnexa, other: normal adnexae and no masses Skin General skin exam: no rashes or lesions noted Neuro General: patient oriented x3 Cognition (Neuro): normal cognition Extrem General: Yes normal to inspection Psych Attitude: cooperative Thought process: Normal thought process present Thought content: Normal thought content present Assessment & Plan Assessment & Plan (1) Encounter for well woman exam: Code(s): Z01.419 - Encounter for gynecological examination (general) (routine) without abnormal findings Plan: Discussed: Current recommendations for pap smears per ASCCP guidelines. Breast awareness and periodic self breast exams. Encouraged yearly mammograms. Maintaining a healthy lifestyle including a well balanced diet including Calcium and Vitamin D and routine exercise. Recommend Replens or vagina lubricants for vaginal dryness if becomes sexually active. Contact office with any PMB. All of her questions and concerns were addressed to the best of my ability RTO in 1 year for AG. (2) Menopausal vaginal dryness: Code(s): N95.1 - Menopausal and female climacteric states Coding Level of Care Code Est Pt Prev Care 40-64y(59185) Diagnoses Encounter for well woman exam Z01.419 Menopausal vaginal dryness N95.1
[2022-12-21 09:22] VITALS: BP 142/88; BMI 30.4
== END 2022-12-21 09:44 | disposition home or self-care (01) ==
LOC: HO.HWS 09:18
PROVIDERS: PCP Internal Medicine; Visit Provider Advanced Practice Midwife
DX: Z01.419 Encounter for gynecological examination (general) (routine) without abnormal findings (principal); N95.1 Menopausal and female climacteric states
CPT/HCPCS: 99396

== ENCOUNTER → 2022-12-21 09:18 | Outpatient (BNVA) | payer OTHER, SELFPAY | PROVIDERS: PCP Internal Medicine; Visit Provider Advanced Practice Midwife ==

== ENCOUNTER 2023-03-05 09:17 | Outpatient (REF) | payer OTHER, SELFPAY ==
[2023-03-05 10:37] LABS: Alanine Aminotransferase 24 U/L (0-31); Albumin Level 3.9 g/dL (3.5-5.0); Alkaline Phosphatase 86 U/L (39-117); Anion Gap 15 (12-20); Aspartate Amino Transferase 21 U/L (5-31); Bilirubin Total 0.9 mg/dL (0.0-1.0); Blood Urea Nitrogen 8 mg/dL (9-16); Calcium 9.3 mg/dL (8.4-10.2); Carbon Dioxide 25 mmol/L (22-29); Chloride 105 mmol/L (96-108); Cholesterol 200 mg/dL (<200); Estimated Glomerular Filt Rate > 60; Glucose Random 144 mg/dL (60-115); HDL Cholesterol 48 mg/dL (>40); LDL Cholesterol Calculated 128 mg/dL (<100); Potassium 4.1 mmol/L (3.3-5.1); Sodium 141 mmol/L (135-145); Triglycerides 122 mg/dL (<150)
[2023-03-05 10:55] LABS: Vitamin D 25-OH Total 47.8 ng/mL (>30)
[2023-03-05 12:28] LABS: Creatinine Urine 162.78 mg/dL; Microalbum/Creatinine Ratio Ur 15.3 ug/mg cr (<30)
== END 2023-03-05 09:18 | disposition home or self-care (01) ==
LOC: HO.LAB 09:17
PROVIDERS: PCP Internal Medicine; Visit Provider Internal Medicine
DX: E11.9 Type 2 diabetes mellitus without complications (principal); E55.9 Vitamin D deficiency, unspecified; E78.5 Hyperlipidemia, unspecified
CPT/HCPCS: 36415; 80053; 80061; 82043; 82306; 82570

== ENCOUNTER 2023-03-08 10:34 | Outpatient (AMB) | payer OTHER, SELFPAY ==
--- NOTE | 2023-03-08 10:45 | MHC.PC.OV ---
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 Required: No Accompanied by: Self / Same As Patient Allergies No Known Allergies [No Known Allergies*] Allergy (Unknown, Verified 03/08/23 10:54) Medication List - Last Reconciled 03/08/23 by Libia Ford MD atorvastatin 20 mg PO BEDTIME 90 days metformin 850 mg PO BID 90 days Tobacco use date assessed: 11/08/22 Fall risk assessment: No Falls in past year Last assessed Fall Risk: 03/08/23 Dental Screening Dental Screen Date: 03/08/23 Did you have a dental visit in the last 12 months?: Yes Did you have a dental problem in the last 6 months where you did not have access to dental care?: No Was dental information given to patient?: Patient has dentist HPI HPI Comments History of Present Illness Details This is a 62-year-old female with diabetes mellitus type 2 dyslipidemia that comes today for follow-up on recent labs. A1c within goal and she has been compliant with metformin. LDL not on goal and she admits not been compliant with statins. Lipid panel will be repeated and she was advised to be compliant with her medications. Last diabetic eye exam was over a year ago and she is not interested in me doing a referral for it. [facility] Medical History Menopausal vaginal dryness Tubular adenoma Diverticulosis Class 1 obesity with body mass index (BMI) of 30.0 to 30.9 in adult Screen for colon cancer Dyslipidemia 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 Surgical History Hx of colonoscopy History of cholecystectomy History of hemicolectomy History of tubal ligation Family History Father Diabetes Mother Hypertension Fibromyalgia Maternal Grandmother No problems noted. Maternal Grandfather No problems noted. Paternal Grandmother Diabetes Paternal Grandfather Diabetes Son No problems noted. Son No problems noted. Daughter No problems noted. Daughter No problems noted. Daughter No problems noted. Social History Housing: Apartment Alcohol intake: never Patient Tobacco Use Status: Former Tobacco user Tobacco use type: Cigarette e-Cigarette/Vaping Use: Former Use Second Hand Smoke Exposure: No service: No Current occupational status: unemployed and disabled Cognitive needs: No Hearing needs: No Vision needs: Yes Female Reproductive History Menstrual Age of Menarche: 11 Questionnaire Thrive Questionnaire Date Thrive assessed: 11/08/22 MAISHA-7 AMB Questionnaire MAISHA-7 Date MAISHA - 7 assessed: 11/08/22 Source: Developed by Drs. Rajiv Graves, Shelby Buckner, Jerrod Huffman and colleagues, with an educational jesus from [employer]. Review of Systems Const All systems reviewed & are unremarkable except as noted in HPI and below Eyes Reports no additional complaints, Denies change in vision and Denies other visual disturbances Card Denies chest pain at rest, Denies chest pain with activity, Denies edema, Denies irregular heart rhythm, Denies claudication, Denies dyspnea, Denies dyspnea on exertion, Denies orthopnea, Denies paroxysmal nocturnal dyspnea and Denies slow heart rate Resp Denies cough, Denies dyspnea and Denies dyspnea on exertion GI Denies abdominal pain, Denies change in bowel habits, Denies excessive flatus, Denies nausea and Denies vomiting Denies urinary incontinence, Denies urinary hesitancy and Denies urinary urgency Musc Denies abnormal gait, Denies atrophy, Denies deformity and Denies limited range of motion Skin/Breast Denies bleeding lesions, Denies changing lesions and Denies rash Neuro Denies abnormal gait and Denies lack of coordination Physical exam (Primary Care) Vital Signs: Last Vital Signs BP 124/80 03/08/23 10:46 BMI result Body Mass Index 29.6 Tobacco/Smoking Status: Tobacco use Status Tobacco use date assessed 11/08/22 03/08/23 10:49 Patient Tobacco Use Status Former Tobacco user 03/08/23 10:49 Tobacco use type Cigarette 03/08/23 10:49 e-Cigarette/Vaping Use Former Use 03/08/23 10:49 Thrive Assessment: Date of Thrive Assessment Date Thrive assessed 11/08/22 03/08/23 10:49 Eyes General: appearance normal, both eyes and all related structures Eyelids: Yes eyelids normal Conjunctivae: conjunctivae normal Neck Neck: Yes normal visual inspection and Yes supple Resp Effort & Inspection: normal respiratory effort Auscultation: clear to auscultation bilaterally Cardio Jugular venous distension: no JVD Rate: regular rate Rhythm: regular rhythm Heart sounds: S1 normal heart sound present and S2 normal heart sound present Extrem General: Yes full ROM Results AMB Hemoglobin A1c AMB Hemoglobin A1c 6.8 % Last Edit by MIGNON Dorantes on 03/08/23 10:52 Results Reviewed Results Reviewed: Laboratory Last Values Hgb A1c (Clinic) 6.8 % (4.0-6.0) H 03/08/23 10:50 Assessment and Plan Assessment & Plan (1) 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: Code(s): E11.9 - Type 2 diabetes mellitus without complications Qualifiers: 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 type: type 2 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 retirement insulin use: without local intermodal truck driver use 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 complication status: with kidney complications 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 complication detail: with microalbuminuria Qualified Code(s): E11.29 - Type 2 diabetes mellitus with other diabetic kidney complication; R80.9 - Proteinuria, unspecified Plan: Continue metformin. A1c goal is equal or less than 7%. (2) Dyslipidemia: Code(s): E78.5 - Hyperlipidemia, unspecified Plan: Be compliant with statins. LDL goal less than 70. Orders: Orders Comprehensive [place]. 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
[2023-03-08 10:46] VITALS: BP 124/80; BMI 29.6
== END 2023-03-08 11:02 | disposition home or self-care (01) ==
PROVIDERS: Visit Provider Internal Medicine
DX: E11.29 Type 2 diabetes mellitus with other diabetic kidney complication (principal); R80.9 Proteinuria, unspecified; E78.5 Hyperlipidemia, unspecified
CPT/HCPCS: 83036; 99213

== ENCOUNTER 2023-03-30 09:43 | Outpatient (AMB) | payer OTHER, SELFPAY ==
--- NOTE | 2023-03-30 10:03 | MHC.OFFVIS ---
Intake Vital Signs 03/30/23 10:10 Height 5 ft 2 in Weight 162 lb BMI 29.6 BP 146/77 H Blood Pressure Location Lt brachial Position Sitting Pulse 95 Intake Visit Reasons: 1 year follow up Intake Note: Patient yearly follow up for Diverticulosis. Patient denies any GI issues. Senior Billing Consultant Required: No Accompanied by: Self / Same As Patient Allergies No Known Allergies [No Known Allergies*] Allergy (Unknown, Verified 03/30/23 10:02) HPI 1 year follow up HPI Details LAST VISIT Diverticulosis Diagnosed with diverticulosis of the entire colon. Patient states that she is moving her bowels well and eats planning fiber. Will give her script for MiraLax. Patient will call us if this not going to be effective if she is going to have any periods of time when she will have no BM for 2 days. Tubular adenoma One tubular adenoma found on colonoscopy. Patient will need to repeat colorectal screening in 5 years, sooner if symptomatic. Discussed with patient the importance of her blood relatives to go for early colorectal screening. Status post colonoscopy Patient denies any ill effects from the prep, anesthesia or procedure itself. Patient states that she has been feeling well. Denies any melena, hematochezia, unintentional weight loss or ribbon like stools. Diagnosed with tubular adenoma 1 polyp 2nd one was benign. Diverticulosis of the entire colon as well as moderate hemorrhoids found. Patient will receive script for MiraLax. She was instructed to call the office if she will be constipated, have abdominal discomfort or any other GI concerning symptoms. I will see her in 1 year, sooner on as needed basis. Patient is agreeable to this plan and verbalizes understanding of instructions. She was given the opportunity to ask questions and all questions answered. ? Thank you for allowing me to participate in her care Plan Medications New polyethylene glycol 3350 (Miralax) 17 grams PO DAILY 510 grams 2RF TODAY'S VISIT Patient is here today for follow-up. Patient reports that she has been feeling well. Patient reports that she is moving her bowels without any issues. Year ago colonoscopy showed tubular adenoma and recommendation was made to repeat colorectal screening in 5 years. Patient denies any melena, hematochezia, unintentional weight loss or ribbon like stools. Denies any dyspepsia, dysphagia or odynophagia. Patient denies any acid reflux, dyspepsia, dysphagia or odynophagia. Patient reports that she has good appetite. Denies any GI concerning symptoms today. [facility] Medical History Menopausal vaginal dryness Tubular adenoma Diverticulosis Class 1 obesity with body mass index (BMI) of 30.0 to 30.9 in adult Screen for colon cancer Dyslipidemia 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 Surgical History Hx of colonoscopy History of cholecystectomy History of hemicolectomy History of tubal ligation Family History Father Diabetes Mother Hypertension Fibromyalgia Maternal Grandmother No problems noted. Maternal Grandfather No problems noted. Paternal Grandmother Diabetes Paternal Grandfather Diabetes Son No problems noted. Son No problems noted. Daughter No problems noted. Daughter No problems noted. Daughter No problems noted. Social History Housing: Apartment Alcohol intake: never Patient Tobacco Use Status: Former Tobacco user Tobacco use type: Cigarette e-Cigarette/Vaping Use: Former Use Second Hand Smoke Exposure: No service: No Current occupational status: unemployed and disabled Cognitive needs: No Hearing needs: No Vision needs: Yes Female Reproductive History Menstrual Age of Menarche: 11 Review of Systems Const Denies weight gain and Denies weight loss ENT Reports no additional complaints, Denies dysphagia and Denies odynophagia Card Reports no additional complaints Resp Reports no additional complaints GI Denies abdominal pain, Denies belching, Denies melena, Denies bloating, Denies change in bowel habits, Denies dysphagia, Denies excessive flatus, Denies dyspepsia, Denies heartburn, Denies diarrhea, Denies loose stools, Denies nausea, Denies odynophagia and Denies vomiting Musc Reports no additional complaints Neuro Reports no additional complaints Psych Reports no additional complaints Endo Reports no additional complaints Physical Exam Vital Signs: Last Vital Signs Pulse 95 03/30/23 10:10 BP 146/77 H 03/30/23 10:10 BMI result Body Mass Index 29.6 Const General: healthy appearing, no acute distress and well developed Nutritional Appearance: obese Orientation/consciousness: patient oriented x3 HEENT Head: Yes normal to inspection, Yes normocephalic and Yes atraumatic Face and sinus: Yes normal facial exam Mouth: Normal oral and palatal mucosa present Throat: Yes posterior oropharynx normal, Yes tonsils normal and Yes uvula midline Eyes General: appearance normal, both eyes and all related structures Neck Neck: Yes normal visual inspection, Yes full ROM and Yes trachea midline Thyroid: Thyroid normal Resp Effort & Inspection: normal respiratory effort, able to speak in complete sentences, no tracheal deviation and symmetric chest movement Auscultation: clear to auscultation bilaterally Cardio Rate: regular rate Heart sounds: S1 normal heart sound present and S2 normal heart sound present GI Inspection: Yes normal to inspection, No distended and Yes obesity Palpation (GI): Soft to palpation, not firm, nontender and No hepatosplenomegaly present Auscultation: normal bowel sounds General: Yes no CVA tenderness Back/Spine/Pelvis Back: no CVA tenderness Skin General skin exam: elasticity normal, turgor normal and dry skin Neuro General: patient oriented x3 Psych Appearance: grossly normal Mental Status: mental status grossly normal Assessment & Plan Assessment & Plan (1) Diverticulosis: Code(s): K57.90 - Diverticulosis of intestine, part unspecified, without perforation or abscess without bleeding (2) Constipation by delayed colonic transit: Code(s): K59.01 - Slow transit constipation Plan Patient will continue taking MiraLax daily. She can also take probiotic. Denies any GI concerning symptoms. High-fiber diet discussed with patient, list of food high in fibre provided to patient. Patient will follow-up in the office on as needed basis. She is agreeable to this plan and verbalizes understanding of instructions. She was given the opportunity to ask questions and all questions answered. Thank you for allowing me to participate in her care Coding Level of Care Code Est Pt Level 3 (82984) Diagnoses Diverticulosis K57.90 Constipation by delayed colonic transit K59.01 Time Spent (min) 25 Comment 15 minute spent with patient and additional 10 minutes spent reviewing her records
[2023-03-30 10:10] VITALS: BP 146/77; PULSE 95; BMI 29.6
== END 2023-03-30 10:27 | disposition home or self-care (01) ==
PROVIDERS: Visit Provider Nurse Practitioner Family
DX: K57.90 Diverticulosis of intestine, part unspecified, without perforation or abscess without bleeding (principal); K59.01 Slow transit constipation
CPT/HCPCS: 99213

== ENCOUNTER → 2023-03-30 09:43 | Outpatient (BNVA) | payer OTHER, SELFPAY | PROVIDERS: Visit Provider Nurse Practitioner Family ==

== ENCOUNTER 2023-07-09 09:50 | Outpatient (REF) | payer OTHER, SELFPAY ==
[2023-07-09 11:15] LABS: Creatinine Urine 161.93 mg/dL; Microalbum/Creatinine Ratio Ur 28.4 ug/mg cr (<30)
[2023-07-09 11:30] LABS: Alanine Aminotransferase 25 U/L (0-31); Alkaline Phosphatase 92 U/L (39-117); Anion Gap 11 (12-20); Aspartate Amino Transferase 21 U/L (5-31); Bilirubin Total 0.6 mg/dL (0.0-1.0); Blood Urea Nitrogen 11 mg/dL (9-16); Calcium 9.6 mg/dL (8.4-10.2); Carbon Dioxide 28 mmol/L (22-29); Chloride 105 mmol/L (96-108); Cholesterol 196 mg/dL (<200); Estimated Glomerular Filt Rate > 60; Glucose Fasting 143 mg/dL (60-99); HDL Cholesterol 48 mg/dL (>40); LDL Cholesterol Calculated 122 mg/dL (<100); Potassium 3.9 mmol/L (3.3-5.1); Sodium 140 mmol/L (135-145); Total Protein 7.1 g/dL (6.5-8.0); Triglycerides 134 mg/dL (<150)
== END 2023-07-09 09:51 | disposition home or self-care (01) ==
LOC: HO.LAB 09:50
PROVIDERS: PCP Internal Medicine; Visit Provider Internal Medicine
DX: E11.29 Type 2 diabetes mellitus with other diabetic kidney complication (principal); R80.9 Proteinuria, unspecified; E78.5 Hyperlipidemia, unspecified
CPT/HCPCS: 36415; 80053; 80061; 82043; 82570

== ENCOUNTER 2023-07-12 10:34 | Outpatient (AMB) | payer OTHER, SELFPAY ==
--- NOTE | 2023-07-12 10:37 | A.OFFPC_ITS ---
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 Accompanied by: Self / Same As Patient Allergies No Known Allergies [No Known Allergies*] Allergy (Unknown, Verified 07/12/23 10:59) Medication List - Last Reconciled 07/12/23 by Libia Ford MD atorvastatin 20 mg PO BEDTIME 90 days metformin 850 mg PO BID 90 days Tobacco use date assessed: 07/12/23 Fall risk assessment: No Falls in past year Last assessed Fall Risk: 07/12/23 Dental Screening Dental Screen Date: 07/12/23 Did you have a dental visit in the last 12 months?: Yes Did you have a dental problem in the last 6 months where you did not have access to dental care?: No Was dental information given to patient?: Patient has dentist HPI HPI Comments History of Present Illness Details This is a 63-year-old female with diabetes mellitus type 2 and dyslipidemia that comes today for follow-up on her conditions. A1c within goal. Cholesterol has improved but still the LDL is not on goal and I will increase atorvastatin from 20 mg to 40 mg. She declines going to diabetic eye exam and declines a referral. Last dental exam was this month. [facility] Medical History (Updated 07/12/23 @ 11:23 by Libia Ford MD) Essential hypertension Menopausal vaginal dryness Tubular adenoma Diverticulosis Class 1 obesity with body mass index (BMI) of 30.0 to 30.9 in adult Screen for colon cancer Dyslipidemia 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 Surgical History Hx of colonoscopy History of cholecystectomy History of hemicolectomy History of tubal ligation Family History Father Diabetes Mother Hypertension Fibromyalgia Maternal Grandmother No problems noted. Maternal Grandfather No problems noted. Paternal Grandmother Diabetes Paternal Grandfather Diabetes Son No problems noted. Son No problems noted. Daughter No problems noted. Daughter No problems noted. Daughter No problems noted. Social History Housing: Apartment Alcohol intake: never Patient Tobacco Use Status: Former Tobacco user Tobacco use type: Cigarette e-Cigarette/Vaping Use: Former Use Second Hand Smoke Exposure: No service: No Current occupational status: unemployed and disabled Cognitive needs: No Hearing needs: No Vision needs: Yes Female Reproductive History Menstrual Age of Menarche: 11 Questionnaire PHQ-9 Over the last 2 weeks, how often have you been bothered by any of the following problems? 1. Little interest or pleasure in doing things: not at all 2. Feeling down, depressed, or hopeless: not at all 3. Trouble falling or staying asleep, or sleeping too much: not at all 4. Feeling tired or having little energy: not at all 5. Poor appetite or overeating: not at all 6. Feeling bad about yourself - or that you are a failure or have let yourself or your family down: not at all 7. Trouble concentrating on things, such as reading the newspaper or watching television: not at all 8. Moving or speaking so slowly that other people could have noticed. Or the opposite - being so fidgety or restless that you have been moving around a lot more than usual: not at all 9. Thoughts that you would be better off or of hurting yourself in some way: not at all Total score: 0 Depression Screening Interpretation: Negative Depression Screening Done: Yes 00556 - PHQ-9 Billing: Yes Source: Developed by Drs. Rajiv Graves, Shelby Buckner, Jerrod Huffman and colleagues, with an educational jesus from [employer]. Thrive Questionnaire Date Thrive assessed: 07/12/23 I am a: Patient What is your living situation today?: I have a steady place to live Within the past 12 months, did the food you bought not last and you didn't have the money to get more?: Never true Within the past 12 months, did you worry whether your food would run out before you got money to buy more?: Never true Do you have trouble paying for medicines?: No Do you have trouble getting transportation to medical appointments?: No Do you have trouble paying your heating and electricity bill?: No Do you have trouble taking care of your child, family member or friend?: No Do you have trouble with day-to-day activities such as bathing, preparing meals, shopping, managing finances, etc.?: No Are you currently unemployed and looking for a job?: No Are you interested in more education?: No Please select the resources that you would like help with: None Currently or been in a relationship where the following occur: no concerns reported THRIVE Score: 0 AUDIT C Alcohol Use Questionnaire (AUDIT-C) 1. How often do you have a drink containing alcohol?: Never Total Score: 0 MAISHA-7 AMB Questionnaire MAISHA-7 Date MAISHA - 7 assessed: 07/12/23 Feeling nervous, anxious, or on edge: 0 = Not at all Not being able to stop or control worryin = Not at all Worrying too much about different things: 0 = Not at all Trouble relaxin = Not at all Being so restless that it is hard to sit still: 0 = Not at all Becoming easily annoyed or irritable: 0 = Not at all Feeling afraid as if something awful might happen: 0 = Not at all Total MAISHA-7 score (0-4 normal; 5-9 mild; 10-14 moderate; 15-21 severe): 0 Source: Developed by Drs. Rajiv Graves, Shelby Buckner, Jerrod Huffman and colleagues, with an educational jesus from [employer]. MAISHA-7 Assessment Billing MAISHA-7 Assessment Tool: MAISHA-7 Assessment 82186 Review of Systems Const All systems reviewed & are unremarkable except as noted in HPI and below Eyes Reports no additional complaints, Denies change in vision and Denies other visual disturbances Card Denies chest pain at rest, Denies chest pain with activity, Denies edema, Denies irregular heart rhythm, Denies claudication, Denies dyspnea, Denies dyspnea on exertion, Denies orthopnea, Denies paroxysmal nocturnal dyspnea and Denies slow heart rate Resp Denies cough, Denies dyspnea and Denies dyspnea on exertion GI Denies abdominal pain, Denies change in bowel habits, Denies excessive flatus, Denies nausea and Denies vomiting Denies urinary incontinence, Denies urinary hesitancy and Denies urinary urgency Musc Denies abnormal gait, Denies atrophy, Denies deformity and Denies limited range of motion Skin/Breast Denies bleeding lesions, Denies changing lesions and Denies rash Neuro Denies abnormal gait, Denies behavioral changes and Denies lack of coordination Psych Denies behavioral changes Physical exam (Primary Care) Vital Signs: Last Vital Signs BP 130/84 07/12/23 10:40 BMI result Body Mass Index 30.0 Tobacco/Smoking Status: Tobacco use Status Tobacco use date assessed 07/12/23 07/12/23 10:44 Patient Tobacco Use Status Former Tobacco user 07/12/23 10:39 Tobacco use type Cigarette 07/12/23 10:39 e-Cigarette/Vaping Use Former Use 07/12/23 10:39 PHQ-9: PHQ-9 Score PHQ-9: Total score 0 07/12/23 10:44 Depression Screening Interpretation: Negative Thrive Assessment: Date of Thrive Assessment Date Thrive assessed 07/12/23 07/12/23 10:44 Currently or been in a relationship where the following occur: no concerns reported Eyes General: appearance normal, both eyes and all related structures Eyelids: Yes eyelids normal Conjunctivae: conjunctivae normal Neck Neck: Yes normal visual inspection and Yes supple Resp Effort & Inspection: normal respiratory effort Auscultation: clear to auscultation bilaterally Cardio Jugular venous distension: no JVD Rate: regular rate Rhythm: regular rhythm Heart sounds: S1 normal heart sound present and S2 normal heart sound present Extrem General: Yes full ROM Office Procedures Flu Questionnaire Does the patient have a severe egg allergy?: No Results AMB Hemoglobin A1c AMB Hemoglobin A1c 7.0 % Last Edit by MIGNON Dorantes on 07/12/23 10:5 3 Immunizations flu vacc [id number] 6mos up(PF) 60 mcg(15 mcgx4)/0.5 mL IM syringe Performing Provider: Libia Ford MD [facility] Documented (not given) by: MIGNON Dorantes on 07/12/23 10:44 Reason Not Given: Patient Refused Results Reviewed Results Reviewed: Laboratory Last Values Hgb A1c (Clinic) 7.0 % (4.0-6.0) H 07/12/23 10:37 Assessment and Plan Assessment & Plan (1) 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: Code(s): E11.9 - Type 2 diabetes mellitus without complications Qualifiers: 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 type: type 2 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 retirement insulin use: without termite control technician use 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 complication status: with kidney complications 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 complication detail: with microalbuminuria Qualified Code(s): E11.29 - Type 2 diabetes mellitus with other diabetic kidney complication; R80.9 - Proteinuria, unspecified Plan: Continue metformin. A1c goal is equal or less than 7%. (2) Dyslipidemia: Code(s): E78.5 - Hyperlipidemia, unspecified Plan: Increase atorvastatin from 20 mg to 40 mg. LDL goal is less than 70. Orders: Orders AMB Hemoglobin A1c Today E11.9 - Type 2 diabetes mellitus without complications Influenza [id number] Immunization Today Z23 - Encounter for immunization Lipid Panel 4 Months E78.5 - Hyperlipidemia, unspecified Microalbumin, Random (w Creat) 4 Months E11.9 - Type 2 diabetes mellitus without complications Vitamin D 25-OH Total 4 Months E55.9 - Vitamin D deficiency, unspecified Comprehensive [place]. 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
[2023-07-12 10:40] VITALS: BP 130/84
== END 2023-07-12 11:08 | disposition home or self-care (01) ==
PROVIDERS: PCP Internal Medicine; Visit Provider Internal Medicine
DX: E11.29 Type 2 diabetes mellitus with other diabetic kidney complication (principal); E11.69 Type 2 diabetes mellitus with other specified complication; R80.9 Proteinuria, unspecified; E78.5 Hyperlipidemia, unspecified
CPT/HCPCS: 83036; 99213

== ENCOUNTER 2023-12-05 06:50 | Outpatient (REF) | payer MEDICARE, SELFPAY ==
[2023-12-05 07:53] LABS: Alanine Aminotransferase 33 U/L (0-31); Albumin Level 3.8 g/dL (3.5-5.0); Alkaline Phosphatase 112 U/L (39-117); Anion Gap 13 (12-20); Aspartate Amino Transferase 25 U/L (5-31); Bilirubin Total 0.7 mg/dL (0.0-1.0); Blood Urea Nitrogen 15 mg/dL (9-16); Calcium 9.5 mg/dL (8.4-10.2); Carbon Dioxide 27 mmol/L (22-29); Chloride 106 mmol/L (96-108); Cholesterol 194 mg/dL (<200); Estimated Glomerular Filt Rate > 60; Glucose Fasting 164 mg/dL (60-99); HDL Cholesterol 42 mg/dL (>40); LDL Cholesterol Calculated 124 mg/dL (<100); Potassium 4.3 mmol/L (3.3-5.1); Sodium 142 mmol/L (135-145); Triglycerides 140 mg/dL (<150)
[2023-12-05 08:11] LABS: Vitamin D 25-OH Total 36.2 ng/mL (>30)
[2023-12-05 08:13] LABS: Creatinine Urine 110.59 mg/dL; Microalbum/Creatinine Ratio Ur 75.9 ug/mg cr (<30)
== END 2023-12-05 06:51 | disposition home or self-care (01) ==
LOC: HO.LAB 06:50
PROVIDERS: PCP Internal Medicine; Visit Provider Internal Medicine
DX: E55.9 Vitamin D deficiency, unspecified (principal); E11.9 Type 2 diabetes mellitus without complications; E78.5 Hyperlipidemia, unspecified; M41.9 Scoliosis, unspecified
CPT/HCPCS: 36415; 80053; 80061; 82043; 82306; 82570

== ENCOUNTER 2023-12-06 10:43 | Outpatient (AMB) | payer MEDICARE, SELFPAY ==
[2023-12-06 10:56] VITALS: BP 132/80; BMI 29.8
--- NOTE | 2023-12-06 10:56 | A.OFFPC_ITS ---
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 A1c within goal. LDL not on goal and she admits not being compliant with statins. Last diabetic eye exam was over 5 years ago and she declines it. She also declines pneumonia vaccine. Last Pap smear was 2021. Last colonoscopy was 2021. Last mammogram was 2022 and already has an appointment for this year next month. She complains of a skin lesion in the right external ear that is nontender and nonpruritic scaly like that started to appear few months ago. She removed it and reappear again most likely due to eczema and I will prescribe a cream. She declines dermatology referral. [facility] Medical History (Updated 12/06/23 @ 11:36 by Libia Ford MD) Essential hypertension Menopausal vaginal dryness Tubular adenoma Diverticulosis Class 1 obesity with body mass index (BMI) of 30.0 to 30.9 in adult Screen for colon cancer Dyslipidemia 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 Surgical History Hx of colonoscopy History of cholecystectomy History of hemicolectomy History of tubal ligation Family History Father Diabetes Mother Hypertension Fibromyalgia Maternal Grandmother No problems noted. Maternal Grandfather No problems noted. Paternal Grandmother Diabetes Paternal Grandfather Diabetes Son No problems noted. Son No problems noted. Daughter No problems noted. Daughter No problems noted. Daughter No problems noted. Social History Housing: Apartment Alcohol intake: never Patient Tobacco Use Status: Former Tobacco user Tobacco use type: Cigarette e-Cigarette/Vaping Use: Former Use Second Hand Smoke Exposure: No service: No Current occupational status: unemployed and disabled Cognitive needs: No Hearing needs: No Vision needs: Yes Female Reproductive History Menstrual Age of Menarche: 11 Questionnaire Thrive Questionnaire Date Thrive assessed: 07/12/23 MAISHA-7 AMB Questionnaire MAISHA-7 Date MAISHA - 7 assessed: 07/12/23 Source: Developed by Drs. Rajiv Graves, Shelby Buckner, Jerrod Huffman and colleagues, with an educational jesus from [employer]. Review of Systems Const All systems reviewed & are unremarkable except as noted in HPI and below Card Denies chest pain at rest, Denies chest pain with activity, Denies edema, Denies irregular heart rhythm, Denies claudication, Denies dyspnea, Denies dyspnea on exertion, Denies orthopnea, Denies paroxysmal nocturnal dyspnea and Denies slow heart rate Resp Denies cough, Denies dyspnea and Denies dyspnea on exertion GI Denies abdominal pain, Denies change in bowel habits, Denies excessive flatus, Denies nausea and Denies vomiting Denies urinary incontinence, Denies urinary hesitancy and Denies urinary urgency Musc Denies abnormal gait, Denies atrophy, Denies deformity and Denies limited range of motion Skin/Breast Reports lesions Neuro Denies abnormal gait, Denies behavioral changes and Denies lack of coordination Psych Denies behavioral changes Physical exam (Primary Care) Vital Signs: Last Vital Signs BP 132/80 12/06/23 10:56 BMI result Body Mass Index 29.8 BMI Assessment/Plan discussion: High BMI High, discussed plan: lifestyle, weight reduction, dietary and physical activity Tobacco/Smoking Status: Tobacco use Status Tobacco use date assessed 07/12/23 12/06/23 10:56 Patient Tobacco Use Status Former Tobacco user 12/06/23 10:56 Tobacco use type Cigarette 12/06/23 10:56 e-Cigarette/Vaping Use Former Use 12/06/23 10:56 Thrive Assessment: Date of Thrive Assessment Date Thrive assessed 07/12/23 12/06/23 10:56 HENMT Head: Yes normal to inspection, Yes normocephalic and Yes atraumatic Ears: external ears normal Eyes General: appearance normal, both eyes and all related structures Eyelids: Yes eyelids normal Conjunctivae: conjunctivae normal Neck Neck: Yes normal visual inspection and Yes supple Resp Effort & Inspection: normal respiratory effort Auscultation: clear to auscultation bilaterally Cardio Jugular venous distension: no JVD Rate: regular rate Rhythm: regular rhythm Heart sounds: S1 normal heart sound present and S2 normal heart sound present GI Inspection: Yes normal to inspection Palpation (GI): Soft to palpation and nontender Auscultation: normal bowel sounds Skin Other: Dry scaly skin lesion in right external ear Neuro General: no focal motor deficits Extrem General: Yes full ROM Psych Appearance: grossly normal Results AMB Hemoglobin A1c AMB Hemoglobin A1c 6.8 % Last Edit by MIGNON Dorantes on 12/06/23 11:0 8 Results Reviewed Results Reviewed: Laboratory Last Values Hgb A1c (Clinic) 6.8 % (4.0-6.0) H 12/06/23 10:57 Assessment and Plan Assessment & Plan (1) Physical exam: Code(s): Z00.00 - Encounter for general adult medical examination without abnormal findings Plan: Repeat in a year. 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 A1c goal is equal or less than 7%. (3) Eczema: Code(s): L30.9 - Dermatitis, unspecified Qualifiers: Eczema type: unspecified Qualified Code(s): L30.9 - Dermatitis, unspecified Plan: Start cream. Orders: Orders AMB Hemoglobin A1c Today E11.29 - Type 2 diabetes mellitus with other diabetic kidney complication, R80.9 - Proteinuria, unspecified Review Patient declined Diabetic Eye Exam: 12/06/23 Patient declined Pneumococcal Vaccine: 12/06/23 Coding Level of Care Code Est Pt Level 3 (67742) Est Pt Prev Care >65y(94671) Diagnoses Physical exam Z00.00 Type 2 diabetes mellitus with microalbuminuria, without long-term current use of insulin E11.29; R80.9 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 type: type 2 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 halfway insulin use: without tank terminal gauger use 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 complication status: with kidney complications 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 complication detail: with microalbuminuria Eczema, unspecified type L30.9 Eczema type: unspecified Time Spent (min) 32
== END 2023-12-06 11:26 | disposition home or self-care (01) ==
PROVIDERS: PCP Internal Medicine; Visit Provider Internal Medicine
DX: E11.29 Type 2 diabetes mellitus with other diabetic kidney complication (principal); R80.9 Proteinuria, unspecified; L30.9 Dermatitis, unspecified
CPT/HCPCS: 83036; 99213

== ENCOUNTER 2024-07-09 14:27 | Outpatient (REF) | payer MEDICARE, SELFPAY | END 2024-07-09 14:28 | disposition home or self-care (01) | LOC: HO.MAMMO 14:27 | PROVIDERS: PCP Internal Medicine; Visit Provider Internal Medicine | DX: Z12.31 Encounter for screening mammogram for malignant neoplasm of breast (principal) | CPT/HCPCS: 77063; 77067 ==

== ENCOUNTER → 2024-07-09 14:45 | Outpatient (BNV) | payer MEDICARE, SELFPAY | PROVIDERS: PCP Internal Medicine; Visit Provider Internal Medicine | DX: Z12.31 Encounter for screening mammogram for malignant neoplasm of breast (principal) | CPT/HCPCS: 77063; 77067 ==

== ENCOUNTER 2024-10-22 15:26 | Outpatient (AMB) | payer MEDICARE, SELFPAY ==
--- NOTE | 2024-10-22 15:30 | MHC.PC.OV ---
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 Required: No Accompanied by: Self / Same As Patient Allergies No Known Allergies [No Known Allergies*] Allergy (Unknown, Verified 10/22/24 15:41) Medication List - Last Reconciled 10/22/24 by Libia Ford MD atorvastatin 40 mg PO BEDTIME 90 days metformin 850 mg PO BID 90 days Tobacco use date assessed: 10/22/24 Fall risk assessment: No Falls in past year Last assessed Fall Risk: 10/22/24 Dental Screening Dental Screen Date: 10/22/24 Did you have a dental visit in the last 12 months?: Yes Did you have a dental problem in the last 6 months where you did not have access to dental care?: No Was dental information given to patient?: Patient has dentist HPI HPI Comments History of Present Illness Details The patient is a 64-year-old female presenting with follow-up needs for chronic conditions, focusing on type 2 diabetes mellitus and hypertension management. Her diabetes is poorly controlled, with an HbA1c at 9.6, declining from previously well-managed levels. This deterioration is linked to an interruption in metformin usage due to insurance complications, leading to over a year without medication. She reports intentional dietary adjustments leading to weight reduction. Her hypertension, previously controlled, now shows elevated values, likely due to medication cessation. Hyperlipidemia management is uncertain due to lack of clarity on current statin usage. Personal history of adenomatous colonic polyps necessitates a colonoscopy within the stipulated surveillance period of 3-5 years. Awaiting follow-up in areas of preventive ophthalmologic and dental care, and osteoporosis assessment through bone densitometry as part of health maintenance plans. [facility] Medical History (Updated 10/22/24 @ 15:55 by Libia Ford MD) Essential hypertension Menopausal vaginal dryness Tubular adenoma Diverticulosis Class 1 obesity with body mass index (BMI) of 30.0 to 30.9 in adult Screen for colon cancer Dyslipidemia 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 Surgical History Hx of colonoscopy History of cholecystectomy History of hemicolectomy History of tubal ligation Family History Father Diabetes Mother Hypertension Fibromyalgia Maternal Grandmother No problems noted. Maternal Grandfather No problems noted. Paternal Grandmother Diabetes Paternal Grandfather Diabetes Son No problems noted. Son No problems noted. Daughter No problems noted. Daughter No problems noted. Daughter No problems noted. Social History Housing: Apartment Alcohol intake: never Patient Tobacco Use Status: Former Tobacco user Tobacco use type: Cigarette e-Cigarette/Vaping Use: Former Use Second Hand Smoke Exposure: No service: No Current occupational status: unemployed and disabled Cognitive needs: No Hearing needs: No Vision needs: Yes Female Reproductive History Menstrual Age of Menarche: 11 Questionnaire PHQ-9 Over the last 2 weeks, how often have you been bothered by any of the following problems? 1. Little interest or pleasure in doing things: not at all 2. Feeling down, depressed, or hopeless: not at all 3. Trouble falling or staying asleep, or sleeping too much: not at all 4. Feeling tired or having little energy: not at all 5. Poor appetite or overeating: not at all 6. Feeling bad about yourself - or that you are a failure or have let yourself or your family down: not at all 7. Trouble concentrating on things, such as reading the newspaper or watching television: not at all 8. Moving or speaking so slowly that other people could have noticed. Or the opposite - being so fidgety or restless that you have been moving around a lot more than usual: not at all 9. Thoughts that you would be better off or of hurting yourself in some way: not at all Total score: 0 Depression Screening Interpretation: Negative Depression Screening Done: Yes 37952 - PHQ-9 Billing: Yes Source: Developed by Drs. Rajiv Graves, Shelby Buckner, Jerrod Huffman and colleagues, with an educational jesus from [employer]. Thrive Questionnaire Date Thrive assessed: 10/22/24 I am a: Patient What is your living situation today?: I have a steady place to live Within the past 12 months, did the food you bought not last and you didn't have the money to get more?: Never true Within the past 12 months, did you worry whether your food would run out before you got money to buy more?: Never true Do you have trouble paying for medicines?: No Do you have trouble getting transportation to medical appointments?: No Do you have trouble paying your heating and electricity bill?: No Do you have trouble taking care of your child, family member or friend?: No Do you have trouble with day-to-day activities such as bathing, preparing meals, shopping, managing finances, etc.?: No Are you currently unemployed and looking for a job?: No Are you interested in more education?: No Please select the resources that you would like help with: None Currently or been in a relationship where the following occur: No concerns reported THRIVE Score: 0 AUDIT C Alcohol Use Questionnaire (AUDIT-C) 1. How often do you have a drink containing alcohol?: Never Total Score: 0 Score Reviewed/Action Taken: No MAISHA-7 AMB Questionnaire MAISHA-7 Date MAISHA - 7 assessed: 10/22/24 Feeling nervous, anxious, or on edge: 0 = Not at all Not being able to stop or control worryin = Not at all Worrying too much about different things: 0 = Not at all Trouble relaxin = Not at all Being so restless that it is hard to sit still: 0 = Not at all Becoming easily annoyed or irritable: 0 = Not at all Feeling afraid as if something awful might happen: 0 = Not at all Total MAISHA-7 score (0-4 normal; 5-9 mild; 10-14 moderate; 15-21 severe): 0 Source: Developed by Drs. Rajiv Graves, Shelby Buckner, Jerrod Huffman and colleagues, with an educational jesus from [employer]. MAISHA-7 Assessment Billing MAISHA-7 Assessment Tool: MAISHA-7 Assessment 62866 Review of Systems Const All systems reviewed & are unremarkable except as noted in HPI and below Card Denies chest pain at rest, Denies chest pain with activity, Denies edema, Denies irregular heart rhythm, Denies claudication, Denies dyspnea, Denies dyspnea on exertion, Denies orthopnea, Denies paroxysmal nocturnal dyspnea and Denies slow heart rate Resp Denies cough, Denies dyspnea and Denies dyspnea on exertion Physical exam (Primary Care) Vital Signs: Last Vital Signs BP 146/90 H 10/22/24 15:35 BMI result Body Mass Index 28.9 Tobacco/Smoking Status: Tobacco use Status Tobacco use date assessed 10/22/24 10/22/24 15:38 Patient Tobacco Use Status Former Tobacco user 10/22/24 15:32 Tobacco use type Cigarette 10/22/24 15:32 e-Cigarette/Vaping Use Former Use 10/22/24 15:32 PHQ-9: PHQ-9 Score PHQ-9: Total score 0 10/22/24 15:38 Depression Screening Interpretation: Negative Thrive Assessment: Date of Thrive Assessment Date Thrive assessed 10/22/24 10/22/24 15:32 Currently or been in a relationship where the following occur: No concerns reported Resp Effort & Inspection: normal respiratory effort Auscultation: clear to auscultation bilaterally Cardio Jugular venous distension: no JVD Rate: regular rate Rhythm: regular rhythm Heart sounds: S1 normal heart sound present and S2 normal heart sound present Extrem General: Yes full ROM Results AMB Hemoglobin A1c AMB Hemoglobin A1c 9.6 % Last Edit by MIGNON Dorantes on 10/22/24 15:42 Coding Level of Care Code Est Pt Level 4 (36713) Complex EM visit Add On G2211 Diagnoses Type 2 diabetes mellitus with microalbuminuria, without long-term current use of insulin E11.29; R80.9 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 type: type 2 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 drywall professional insulin use: without drywall professional use 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 complication status: with kidney complications 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 complication detail: with microalbuminuria Tubular adenoma D36.9 Dyslipidemia E78.5 Essential hypertension I10 Additional Codes PHQ-9 - 17210 - PHQ-9 Billing: Yes ([id number]) MAISHA-7 Assessment Billing - MAISHA-7 Assessment Tool: MAISHA-7 Assessment 88421 ([id number]) Time Spent (min) 20 Assessment & Plan Assessment & Plan (1) 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: Code(s): E11.9 - Type 2 diabetes mellitus without complications Category: Medical Qualifiers: 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 type: type 2 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 drywall professional insulin use: without residential use 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 complication status: with kidney complications 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 complication detail: with microalbuminuria Qualified Code(s): E11.29 - Type 2 diabetes mellitus with other diabetic kidney complication; R80.9 - Proteinuria, unspecified (2) Tubular adenoma: Code(s): D36.9 - Benign neoplasm, unspecified site Category: Medical (3) Dyslipidemia: Code(s): E78.5 - Hyperlipidemia, unspecified Category: Medical (4) Essential hypertension: Code(s): I10 - Essential (primary) hypertension Category: Medical Plan Will have her blood pressure and hyperlipidemia re-evaluated. For hypertension, a re-check is planned in three months to determine if antihypertensive medications are necessary. Confirm atorvastatin usage as part of hyperlipidemia management. Recommend scheduling a colonoscopy this year for colonic polyp surveillance. Encourage the patient to receive pneumonia vaccination and follow through with scheduled cancer screenings, specifically, a bone densitometry to evaluate osteoporosis status. She should also complete an eye examination as part of routine preventive care. Regular follow-ups will be crucial to ensure her conditions remain stable and well-managed.: Patient was informed and verbally consented to the use of an ambient scribe for clinic note documentation during this visit. I discussed with the patient the importance of resuming metformin for her diabetes management to better control her HbA1c levels, which are currently at 9.6. I explained the risks of unmanaged diabetes, including potential complications, and reinforced the benefits of consistent medication adherence. We agreed on monitoring her blood pressure levels, planning a re-evaluation in three months to decide if antihypertensive therapy should be initiated. We reviewed her history of colonic polyps and agreed on a colonoscopy this year without urgent need but within recommended surveillance timing. Preventive measures, including vaccination and screening, were emphasized, with pneumonia vaccination highlighted as crucial post-65 years. I ensured she understood the importance of completing cancer screenings timely, including bone densitometry, given her age. I also encouraged her to schedule an eye exam for comprehensive health maintenance. Orders: Orders AMB Hemoglobin A1c Today E11.29 - Type 2 diabetes mellitus with other diabetic kidney complication, R80.9 - Proteinuria, unspecified Comprehensive [place]. Panel Fast Today E11.29 - Type 2 diabetes mellitus with other diabetic kidney complication, R80.9 - Proteinuria, unspecified Lipid Panel Today E78.5 - Hyperlipidemia, unspecified Microalbumin, Random (w Creat) Today R80.9 - Proteinuria, unspecified Vitamin D 25-OH Total Today E55.9 - Vitamin D deficiency, unspecified XR DEXA axial skeleton Today Z78.0 - Asymptomatic menopausal state Referrals Open Access Screening Colonoscopy Referral Z12.12 - Encounter for screening for malignant neoplasm of rectum Medications: Refilled atorvastatin 40 mg PO BEDTIME 90 days 90 tabs 1RF E78.5 - Hyperlipidemia, unspecified metformin 850 mg PO BID 90 days 180 tabs 2RF E11.29 - Type 2 diabetes mellitus with other diabetic kidney complication, R80.9 - Proteinuria, unspecified Patient Instructions: - Start taking metformin as prescribed for diabetes control. - Monitor your blood pressure and return in three months for re-evaluation. - Follow up on atorvastatin usage for cholesterol management. - Schedule a colonoscopy this year for routine colonic polyp surveillance. - Receive pneumonia vaccination to protect against pneumococcal disease. - Attend a bone densitometry test and an eye examination. - Maintain your current dietary changes for continued weight management. - Return for regular follow-up visits to monitor and manage your health conditions.
[2024-10-22 15:35] VITALS: BP 146/90; BMI 28.9
== END 2024-10-22 15:57 | disposition home or self-care (01) ==
LOC: HO.HMCH 15:27
PROVIDERS: PCP Internal Medicine; Visit Provider Internal Medicine
DX: E11.29 Type 2 diabetes mellitus with other diabetic kidney complication (principal); R80.9 Proteinuria, unspecified; D36.9 Benign neoplasm, unspecified site; E78.5 Hyperlipidemia, unspecified; I10 Essential (primary) hypertension

== ENCOUNTER → 2024-10-22 15:26 | Outpatient (BNVA) | payer MEDICARE, SELFPAY | PROVIDERS: PCP Internal Medicine; Visit Provider Internal Medicine | DX: E11.29 Type 2 diabetes mellitus with other diabetic kidney complication (principal); I10 Essential (primary) hypertension; E78.5 Hyperlipidemia, unspecified; D36.9 Benign neoplasm, unspecified site; R80.9 Proteinuria, unspecified; E55.9 Vitamin D deficiency, unspecified; Z78.0 Asymptomatic menopausal state; Z79.84 Long term (current) use of oral hypoglycemic drugs; Z86.0100 Personal history of colon polyps, unspecified | CPT/HCPCS: 83036; 96127; 99212 ==

== ENCOUNTER → 2024-11-13 14:47 | Outpatient (BNVA) | payer MEDICARE, SELFPAY | PROVIDERS: PCP Internal Medicine ==

== ENCOUNTER 2024-12-03 13:24 | Outpatient (REF) | payer MEDICARE, SELFPAY ==
--- NOTE | ~2024-12-03 | MM_ITS ---
EXAMINATION: DXA BONE DENSITY AXIAL HISTORY: Z78.0 - Asymptomatic menopausal state TECHNIQUE: [employer] Dual energy absorptiometry (DEXA) of the lumbar spine, total left hip, and femoral neck was performed. COMPARISON: There are no prior studies for comparison. FINDINGS: The bone mineral density of the lumbar spine is 1.075, corresponding to a T-score of -0.9, and a Z-score of 0.5. This is indicative of normal bone mineral density. The bone mineral density of the left total hip is 0.935, corresponding to a T-score of -0.6, and a Z-score of 0.5. This is indicative of normal bone mineral density. The bone mineral density of the left femoral neck is 0.762, corresponding to a T-score of -2.0, and a Z-score of -0.6. This is indicative of osteopenia. FRACTURE RISK: The FRAX index suggests a risk of major osteoporotic fracture of 6.1%, and of hip fracture 0.9%. MM/XR DEXA axial skeleton IMPRESSION: Based on bone mineral density, and according to World Health Organization (WHO) criteria, the diagnosis is consistent with osteopenia. All bone density values are in grams per centimeter squared (g/cm2). Statistically, 68% of repeat scans fall within 1 SD (+/- 0.010 g/cm2 for AP spine L1-L4) and 1 SD (+/- 0.012 g/cm2 for femur total) FRAX is a trademark of the [employer]'s [place] for Metabolic Bone Disease, a World Health Organization (WHO) Collaborating Center. Electronically signed by: Rajvi Torres MD 12/03/2024 02:08 PM EDT
== END 2024-12-03 13:25 | disposition home or self-care (01) ==
LOC: HO.MAMMO 13:24
PROVIDERS: PCP Internal Medicine; Visit Provider Internal Medicine
DX: Z13.820 Encounter for screening for osteoporosis (principal); Z78.0 Asymptomatic menopausal state
CPT/HCPCS: 77080

== ENCOUNTER → 2024-12-03 13:30 | Outpatient (BNV) | payer MEDICARE, SELFPAY | PROVIDERS: PCP Internal Medicine; Visit Provider Radiology Diagnostic Radiology | DX: E28.39 Other primary ovarian failure (principal) | CPT/HCPCS: 77080 ==

== ENCOUNTER 2025-02-24 06:24 | Outpatient (REF) | payer MEDICARE, SELFPAY ==
[2025-02-24 08:38] LABS: Alanine Aminotransferase 24 U/L (0-31); Albumin Level 4.0 g/dL (3.5-5.0); Alkaline Phosphatase 81 U/L (39-117); Anion Gap 11 (12-20); Aspartate Amino Transferase 26 U/L (5-31); Blood Urea Nitrogen 9 mg/dL (9-16); Calcium 9.1 mg/dL (8.4-10.2); Carbon Dioxide 28 mmol/L (22-29); Chloride 109 mmol/L (96-108); Cholesterol 104 mg/dL (<200); Estimated Glomerular Filt Rate > 60; HDL Cholesterol 40 mg/dL (>40); Potassium 3.9 mmol/L (3.3-5.1); Sodium 144 mmol/L (135-145); Total Protein 6.7 g/dL (6.5-8.0); Triglycerides 84 mg/dL (<150)
[2025-02-24 09:05] LABS: Microalbum/Creatinine Ratio Ur 51.9 ug/mg cr (<30)
== END 2025-02-24 06:25 | disposition home or self-care (01) ==
LOC: HO.LAB 06:24
PROVIDERS: PCP Internal Medicine; Visit Provider Internal Medicine
DX: E11.29 Type 2 diabetes mellitus with other diabetic kidney complication (principal); E78.5 Hyperlipidemia, unspecified; E55.9 Vitamin D deficiency, unspecified; R80.9 Proteinuria, unspecified
CPT/HCPCS: 36415; 80053; 80061; 82043; 82306; 82570

== ENCOUNTER 2025-02-25 14:41 | Outpatient (AMB) | payer MEDICARE, SELFPAY ==
[2025-02-25 14:47] VITALS: BP 136/80; PULSE 83; O2SAT 95; BMI 28.5
--- NOTE | 2025-02-25 14:47 | MHC.PC.OV ---
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 Accompanied by: Self / Same As Patient Allergies No Known Allergies (No Known Allergies*) Allergy (Unknown, Verified 02/25/25 14:58) Medication List - Last Reconciled 02/25/25 by Libia Ford MD atorvastatin 40 mg PO BEDTIME 90 days calcium carbonate-vitamin D3 500 mg-10 mcg (400 unit) ([place] Calcium-Vitamin D3) 1 tab PO BID 90 days metformin 850 mg PO BID 90 days Tobacco use date assessed: 02/25/25 Fall risk assessment: No Falls in past year Last assessed Fall Risk: 02/25/25 Dental Screening Dental Screen Date: 02/25/25 Did you have a dental visit in the last 12 months?: Yes Did you have a dental problem in the last 6 months where you did not have access to dental care?: No Was dental information given to patient?: Patient has dentist HPI HPI Comments History of Present Illness Details This is a 64-year-old female with diabetes mellitus type 2, dyslipidemia and osteopenia that comes today for follow-up on her conditions. A1c has markedly improved to within goal being 7%. LDL within goal. Patient compliant with medications has not had a diabetic eye exam in over a year. Screening colonoscopy is pending for her to receive a call. [facility] Medical History (Updated 12/13/24 @ 20:30 by Libia Ford MD) Essential hypertension Menopausal vaginal dryness Tubular adenoma Diverticulosis Class 1 obesity with body mass index (BMI) of 30.0 to 30.9 in adult Screen for colon cancer Dyslipidemia 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 Surgical History Hx of colonoscopy History of cholecystectomy History of hemicolectomy History of tubal ligation Family History Father Diabetes Mother Hypertension Fibromyalgia Maternal Grandmother No problems noted. Maternal Grandfather No problems noted. Paternal Grandmother Diabetes Paternal Grandfather Diabetes Son No problems noted. Son No problems noted. Daughter No problems noted. Daughter No problems noted. Daughter No problems noted. Social History Housing: Apartment Alcohol intake: never Patient Tobacco Use Status: Former Tobacco user Tobacco use type: Cigarette e-Cigarette/Vaping Use: Former Use Second Hand Smoke Exposure: No service: No Current occupational status: unemployed and disabled Cognitive needs: No Hearing needs: No Vision needs: Yes Female Reproductive History Menstrual Age of Menarche: 11 Questionnaire Thrive Questionnaire Date Thrive assessed: 10/22/24 I am a: Patient What is your living situation today?: I have a steady place to live Within the past 12 months, did the food you bought not last and you didn't have the money to get more?: Never true Within the past 12 months, did you worry whether your food would run out before you got money to buy more?: Never true Do you have trouble paying for medicines?: No Do you have trouble getting transportation to medical appointments?: No Do you have trouble paying your heating and electricity bill?: No Do you have trouble taking care of your child, family member or friend?: No Do you have trouble with day-to-day activities such as bathing, preparing meals, shopping, managing finances, etc.?: No Are you currently unemployed and looking for a job?: No Are you interested in more education?: No Please select the resources that you would like help with: None Currently or been in a relationship where the following occur: No concerns reported THRIVE Score: 0 AUDIT C Alcohol Use Questionnaire (AUDIT-C) 1. How often do you have a drink containing alcohol?: Never 3. How often do you have six or more drinks on one occasion?: Never Total Score: 0 Score Reviewed/Action Taken: No MAISHA-7 AMB Questionnaire MAISHA-7 Date MAISHA - 7 assessed: 10/22/24 Source: Developed by Drs. Rajiv Graves, Shelby Buckner, Jerrod Huffman and colleagues, with an educational jesus from [employer]. Review of Systems Const All systems reviewed & are unremarkable except as noted in HPI and below Card Denies chest pain at rest, Denies chest pain with activity, Denies edema, Denies irregular heart rhythm, Denies claudication, Denies dyspnea, Denies dyspnea on exertion, Denies orthopnea, Denies paroxysmal nocturnal dyspnea and Denies slow heart rate Resp Denies cough, Denies dyspnea and Denies dyspnea on exertion Neuro Denies lack of coordination Physical exam (Primary Care) Vital Signs: Last Vital Signs Pulse 83 02/25/25 14:47 BP 136/80 02/25/25 14:47 Pulse Ox 95 02/25/25 14:47 Oxygen Delivery Method Room Air 02/25/25 14:47 BMI result Body Mass Index 28.5 Tobacco/Smoking Status: Tobacco use Status Tobacco use date assessed 02/25/25 02/25/25 14:48 Patient Tobacco Use Status Former Tobacco user 02/25/25 14:48 Tobacco use type Cigarette 02/25/25 14:48 e-Cigarette/Vaping Use Former Use 02/25/25 14:48 Thrive Assessment: Date of Thrive Assessment Date Thrive assessed 10/22/24 02/25/25 14:48 Currently or been in a relationship where the following occur: No concerns reported Resp Effort & Inspection: normal respiratory effort Auscultation: clear to auscultation bilaterally Cardio Jugular venous distension: no JVD Rate: regular rate Rhythm: regular rhythm Heart sounds: S1 normal heart sound present and S2 normal heart sound present Extrem General: Yes full ROM Coding Level of Care Code Est Pt Level 3 (35875) Complex EM visit Add On G2211 Diagnoses Type 2 diabetes mellitus with microalbuminuria, without long-term current use of insulin E11.29; R80.9 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 type: type 2 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 terminal worker insulin use: without halfway use 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 complication status: with kidney complications 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 complication detail: with microalbuminuria Dyslipidemia E78.5 Osteopenia M85.80 Time Spent (min) 19 Assessment & Plan Assessment & Plan (1) 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: Code(s): E11.9 - Type 2 diabetes mellitus without complications Category: Medical Qualifiers: 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 type: type 2 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 halfway insulin use: without terminal worker use 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 complication status: with kidney complications 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 complication detail: with microalbuminuria Qualified Code(s): E11.29 - Type 2 diabetes mellitus with other diabetic kidney complication; R80.9 - Proteinuria, unspecified (2) Dyslipidemia: Code(s): E78.5 - Hyperlipidemia, unspecified Category: Medical (3) Osteopenia: Code(s): M85.80 - Other specified disorders of bone density and structure, unspecified site Category: Medical Plan Continue current meds. Repeat labs in 6 months. Orders: Orders Microalbumin, Random (w Creat) 6 Months R80.9 - Proteinuria, unspecified Vitamin B12 and Folate 6 Months E53.8 - Deficiency of other specified B group vitamins Comprehensive [place]. Panel Fast 6 Months E11.29 - Type 2 diabetes mellitus with other diabetic kidney complication, R80.9 - Proteinuria, unspecified Lipid Panel 6 Months E78.5 - Hyperlipidemia, unspecified Vitamin D 25-OH Total 6 Months E55.9 - Vitamin D deficiency, unspecified
== END 2025-02-25 15:09 | disposition home or self-care (01) ==
PROVIDERS: PCP Internal Medicine; Visit Provider Internal Medicine
DX: E11.29 Type 2 diabetes mellitus with other diabetic kidney complication (principal); R80.9 Proteinuria, unspecified; E78.5 Hyperlipidemia, unspecified; M85.80 Other specified disorders of bone density and structure, unspecified site; Z13.9 Encounter for screening, unspecified

== ENCOUNTER → 2025-02-25 14:41 | Outpatient (BNVA) | payer MEDICARE, SELFPAY | PROVIDERS: PCP Internal Medicine; Visit Provider Internal Medicine | DX: E11.29 Type 2 diabetes mellitus with other diabetic kidney complication (principal); E78.5 Hyperlipidemia, unspecified; M85.80 Other specified disorders of bone density and structure, unspecified site; R80.9 Proteinuria, unspecified; E53.8 Deficiency of other specified B group vitamins; E55.9 Vitamin D deficiency, unspecified | CPT/HCPCS: 83036; 99212 ==